=== PATIENT | female | born 1950 | race Caucasian/White ===

== ENCOUNTER 2019-05-14 08:33 | Inpatient (IN) | payer OTHER, SELFPAY ==
[~2019-05-14] VITALS: Ht 162.6 cm; Wt 56.6 kg
[2019-05-14] MEDS ORDERED: ASPI81TA85 PO (08:52)
[2019-05-14] MEDS ORDERED: CLOPIDOGREL 75 MG TAB PO SCH (09:00)
[2019-05-14] MEDS ORDERED: ASPIRIN 81 MG CHEW TABLET PO SCH (09:00)
--- NOTE | 2019-05-14 09:36 | REP ---
CT brain: No new 05/14/2019. Indication: Altered mental status. Stroke. Comparison: None. Technique: Unenhanced axial CT images of the brain were obtained from skull base to vertex. Findings: There is no acute intracranial hemorrhage, acute cortical infarction, mass effect or hydrocephalous. Age-related volume loss is present. Patchy areas of cerebral hemisphere white matter hypoattenuation are noted most consistent with chronic small vessel disease. The visualized paranasal sinuses and mastoid air cells are clear. Impression: No acute intracranial process. Chronic age-related ischemic changes. Electronically Signed by Arthur Tovar DO 05/14/2019 09:28 A
[2019-05-14 09:38] LABS: BASO % 0.3 % (0.0-1.0); HEMATOCRIT 46.9 % (36.0-47.0); HEMOGLOBIN 15.2 g/dl (12.0-15.5); LYMPH # 0.8 10^3/uL (1.5-5.0); LYMPH % 6.8 % (24.0-44.0); MEAN CORPUSCULAR HEMOGLOBIN 29.7 pg (27.0-33.0); MEAN CORPUSCULAR HGB CONC 32.4 g/dl (32.0-36.5); MEAN CORPUSCULAR VOLUME 91.8 fl (80.0-96.0); MONO # 0.5 10^3/uL (0.0-0.8); MONO % 4.7 % (0.0-5.0); NEUTROPHILS # 9.8 10^3/uL (1.5-8.5); NEUTROPHILS % 87.8 % (36.0-66.0); PLATELET COUNT, AUTOMATED 311 10^3/uL (150-450); RED BLOOD COUNT 5.11 10^6/uL (4.00-5.40); WHITE BLOOD COUNT 11.1 10^3/uL (4.0-10.0)
--- NOTE | 2019-05-14 09:41 | REP ---
Clinical: Altered mental status . Comparison: None . Findings: The mediastinum and cardiac silhouette are stable and within normal limits for portable technique. The lung miller demonstrate chronic changes without acute consolidation, effusion, or pneumothorax. Skeletal structures are intact. Impression: No acute cardiopulmonary process appreciated. Electronically Signed by Tirso Serrano MD 05/14/2019 09:33 A
[2019-05-14 10:11] LABS: INR 1.03; PROTHROMBIN TIME 13.2 SECONDS (11.8-14.0)
[2019-05-14 10:19] LABS: ALBUMIN 4.2 GM/DL (3.2-5.2); ALT/SGPT 39 U/L (12-78); BILIRUBIN,DIRECT 0.2 MG/DL (0.0-0.2); BILIRUBIN,TOTAL 0.8 MG/DL (0.2-1.0); BLOOD UREA NITROGEN 12 MG/DL (7-18); CALCIUM LEVEL 9.6 MG/DL (8.8-10.2); CARBON DIOXIDE LEVEL 24 MEQ/L (21-32); CHLORIDE LEVEL 106 MEQ/L (98-107); CK-MB VALUE MASS 6.3 NG/ML (<3.6); CPK CREATINE PHOSPHOKINASE 284 U/L (26-192); CREATININE FOR GFR 0.67 MG/DL (0.55-1.30); GLOMERULAR FILTRATION RATE > 60.0 (>39); GLUCOSE, FASTING 140 MG/DL (70-100); MB/CK RELATIVE INDEX 2.22 (< OR =4); POTASSIUM SERUM 3.7 MEQ/L (3.5-5.1); SODIUM LEVEL 140 MEQ/L (136-145); THYROID STIMULATING HORMONE 0.914 uIU/ML (0.358-3.740); TOTAL PROTEIN 7.9 GM/DL (6.4-8.2); TROPONIN I 0.68 NG/ML (< 0.10)
[2019-05-14] MEDS ORDERED: LABETALOL HCL 200 MG in D5W 160 ML IV SCH ×5 (11:45→13:00)
[2019-05-14] MEDS ORDERED: LABETALOL HCL 100 MG/20 ML VIAL IV PRN (12:00)
--- NOTE | 2019-05-14 12:23 | REP ---
MRI brain: New 05/14/2019. Indication: Weakness. Stroke. Comparison: None. Technique: Multiplanar short and long TR sequences of the brain were obtained without IV Gadolinium. Findings: There is a focus of restricted diffusion within the right mast radiata and extends inferiorly into the posterior limb of the internal capsule and subcortical insular white matter. There is no associated mass effect or hemorrhage. No additional areas of restricted diffusion are present. Diffuse volume loss is present. There are multiple areas of elevated T2 prolongation scattered throughout the cerebral hemisphere white matter most consistent with chronic small vessel disease. The large intracranial flow voids are present. The midline structures, and craniocervical junction are unremarkable. Impression: Acute right mast radiata infarction without mass effect or significant hemorrhage. Sequelae of chronic microangiopathic ischemic disease and mild diffuse volume loss. Electronically Signed by Arthur Tovar DO 05/14/2019 12:15 P
--- NOTE | 2019-05-14 12:32 | REP ---
Intracranial MRA: 05/14/2019. Indication: Stroke. Comparison: None. Technique: 3-D [id number] imaging of the intracranial vessels was performed. Findings: There are no areas of high-grade stenosis or vessel occlusion. Intracranially. There is a four - 5 mm right PCoA region aneurysm which projects laterally and inferiorly. No additional intracranial aneurysms are detected. There is no intracranial AVM ear Impression: No intracranial high-grade stenosis or vessel occlusion. 4- 5 mm right PCoA aneurysm. Electronically Signed by Arthur Tovar DO 05/14/2019 12:23 P
--- NOTE | 2019-05-14 13:04 | REP ---
Clinical: Acute right mast radiata infarction. Technique: William scale and color Doppler evaluation using linear high frequency transducer Findings: Two-dimensional william scale and color images demonstrate minimal atheromatous plaquing with normal laminar flow and no appreciable narrowing. Color Doppler interrogation demonstrates normal arterial wave patterns and velocities with no significant spectral broadening. Normal flow direction is appreciated in the bilateral vertebral arteries. RIGHT (cm/s) LEFT (cm/s) ICA peak systolic velocity 50.2 51.6 ICA diastolic velocity 18.8 16.2 ECA peak systolic velocity 74.0 68.1 CCA peak systolic velocity 59.3 63.9 ICA/CCA ratio 0.85 0.81 Impression: No hemodynamically significant areas of narrowing or stenosis appreciated. Based on set standards narrowing falls within the less than 50% range. Electronically Signed by Tirso Serrano MD 05/14/2019 12:55 P
[2019-05-14 13:27] VITALS: BP 174/118
[2019-05-14] MEDS: ASPIRIN 81 MG CHEW TABLET PO SCH (14:48)
[2019-05-14] MEDS: ATORVASTATIN 20 MG TAB PO SCH (14:48)
[2019-05-14] MEDS: CLOPIDOGREL 75 MG TAB PO SCH (14:48)
[2019-05-14 15:42] LABS: HEMOGLOBIN A1c 5.6 %
[2019-05-14 15:57] LABS: CHOLESTEROL RISK RATIO 3.388 (<5); THYROID STIMULATING HORMONE 0.642 uIU/ML (0.358-3.740); TROPONIN I 2.15 NG/ML (< 0.10)
[2019-05-14 16:00] VITALS: BP 180/116
--- NOTE | 2019-05-14 17:02 | ECGEPIP ---
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 Electronically Signed on 05-14-2019 17:02:12 EDT by Oseas Joy
[2019-05-14] MEDS ORDERED: PILL CUTTER 1 EACH XX PRN (18:00)
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
[2019-05-14] MEDS: LABETALOL 100 MG TAB PO PRN (18:04)
[2019-05-14] MEDS: ENOXAPARIN 40 MG/0.4 ML SYRINGE (J1650) SC SCH (18:29)
[2019-05-14 20:00] VITALS: BP 170/100
[2019-05-14] MEDS ORDERED: ATORVASTATIN 20 MG TAB PO SCH (21:00)
--- NOTE | 2019-05-14 21:38 | ECGEPIP ---
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
[2019-05-14 23:22] LABS: CK-MB VALUE MASS 12.4 NG/ML (<3.6); MB/CK RELATIVE INDEX 2.86 (< OR =4)
[2019-05-14 23:28] LABS: MB/CK RELATIVE INDEX 2.9 (< OR =4); TROPONIN I 2.77 NG/ML (< 0.10)
[2019-05-15] VITALS (7 sets, daily range): BP systolic 140–176; BP diastolic 70–106
[2019-05-15 05:54] LABS: HEMATOCRIT 44.6 % (36.0-47.0); HEMOGLOBIN 14.8 g/dl (12.0-15.5); MEAN CORPUSCULAR HEMOGLOBIN 29.1 pg (27.0-33.0); MEAN CORPUSCULAR HGB CONC 33.2 g/dl (32.0-36.5); MEAN CORPUSCULAR VOLUME 87.8 fl (80.0-96.0); PLATELET COUNT, AUTOMATED 322 10^3/uL (150-450); RED BLOOD COUNT 5.08 10^6/uL (4.00-5.40); WHITE BLOOD COUNT 8.4 10^3/uL (4.0-10.0)
[2019-05-15 06:28] LABS: ALBUMIN 3.7 GM/DL (3.2-5.2); ALT/SGPT 36 U/L (12-78); BLOOD UREA NITROGEN 15 MG/DL (7-18); CALCIUM LEVEL 9.5 MG/DL (8.8-10.2); CARBON DIOXIDE LEVEL 28 MEQ/L (21-32); CHLORIDE LEVEL 101 MEQ/L (98-107); CREATININE FOR GFR 0.65 MG/DL (0.55-1.30); GLOMERULAR FILTRATION RATE > 60.0 (>39); GLUCOSE, FASTING 112 MG/DL (70-100); MAGNESIUM LEVEL 2.2 MG/DL (1.8-2.4); POTASSIUM SERUM 3.2 MEQ/L (3.5-5.1); SODIUM LEVEL 137 MEQ/L (136-145); TOTAL PROTEIN 7.4 GM/DL (6.4-8.2)
--- NOTE | 2019-05-15 06:39 | IPNPDOC ---
Text Note Date of Service The patient was seen on 05/15/19. NOTE Interim events: -Admitted with CVA with complete left sided paralysis with NIHSS11 -Rising troponins with stable non acute ischemic EKG with sinus tachycardia and no symptoms and euvolemia -Imaging confirmed right mast radiata infarction without severe vascular disease burden -neurology consulted -Cleared for regular diet Subjective: Feels the same, left sided still without motor strength, otherwise no complaints of chest pain, palpitations, dyspnea, pain Objective: Vitals: see below General Exam: Alert, No Acute Distress Eye Exam: PERRLA, Conjunctiva & lids normal, EOMI ENT Exam: Atraumatic, MMM Neck Exam: supple, no JVD Chest Exam: CTAB Heart Exam: RRR, soft systolic murmur loudest at RUSB Telemetry: No significant arrhythmia Abdomen Exam: Normoactive bowel sounds, soft, non tender Extremity Exam: WWP, no edema, non tender Skin Exam: Nl turgor and temperature, without rashes, breakdown or lesions Neuro Exam: STABLE FROM YESTERDAY: 5/5 strength in RUE and RLE. LLE 1/5 with 4/5 toe strength with wiggling and strength against resistance, however 1/5 unable to lift leg with mild movement of hip, LUE 0/5, sensation remains blunted in entire left side. Coherent clear speech with persistent left facial droop. Psych Exam: Positive: Mental status NL, Oriented x 3 Labs: pending. Prior labs reviewed. Imaging: reviewed. CT head without bleed, MRI confirmed right mast radiata infarction, while MRA and neck US did not reveal severe vascular disease burden or occlusions. Pending TTE. Assessment: 69 yo woman with a previously described history of hypertension not on any medications with no contact with health care providers for >40y, resident of [place], [place] who recently travelled to [place] a few days prior to presentation to visit her daughter and developed left sided numbness that evolved into flaccid paralysis overnight and presented to the ED after >16h with an initial NIHSS score of 11 per ED physician and confirmed acute right mast radiata infarction without mass effect or significant hemorrhage on MRI with course c/b NSTEMI in the setting of hypertensive emergency in the setting of CVA. 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 -[id number] -plavix 75 -neurology consulted -CT without acute a bleed -MRI confirmed an acute right mast radiata infarction without mass effect or significant hemorrhage -MRA did not show high grade intracranial stenosis or vessel occlusion, with noted 4-5mm aneurysm -neck US without significant narrowing -pending TTE with bubble study -PCU admission with permissive hypertension with goal [id number], maintaining BP. -has PRN PO labetalol for SBP>200 -Q4H vitals and neuro checks -s/p evaluation by speech--> regular diet -aspiration precautions -PT/OT eval and treat ordered -ARU evaluation requested -Telemetry -Hgb a1c pending -Lipid panel showing hyperlipidemia, and placed on lipitor as below -TSH wnl Hypertensive emergency: -Arrived in SBP 250s, now running 170s-180s without any intervention -Will maintain permissive hypertension at this time in the setting of an acute CVA with a target goal SBP of 180, which she is maintaining without any interventions. -has 50mg labetalol Q6H PRN order for sustained SBP >200. Type 2 NSTEMI in the setting of hypertensive emergency with CVA, no chest symptoms, EKG with sinus tachycardia likely and rising troponins -pending TTE -repeat EKG was stable and she remains asymptomatic -follow up AM troponin -continue telemetry -spoke with Dr. Joy who recommended adequate BP control with appropriate permissive hypertension and ordering the TTE with bubble study -lipid panel showing dyslipidemia now placed on lipitor -pending a1c -TSH wnl Hyperlipidemia: -continue lipitor DVT prophylaxis: lovenox Diet: regular Proxy: Diony Jaramillo at [phone] Code status: FULL CODE VS,Fishbone, I+O VS, Fishbone, I+O Laboratory Tests 05/14/19 09:19 05/15/19 05:06 Vital Signs Date Time Temp Pulse Resp B/P (MAP) Pulse Ox O2 Delivery O2 Flow Rate FiO2 05/15/19 00:00 97.5 84 18 176/106 (129) 94 Room Air I&O- Last 24 Hours up to 6 AM 05/15/19 06:00 Intake Total 460 ml Output Total 725 ml Balance -265 ml SHAYE ALDRIDGE MD May 15, 2019 06:39
[2019-05-15 07:26] LABS: TROPONIN I 3.37 NG/ML (< 0.10)
[2019-05-15] MEDS: ATORVASTATIN 20 MG TAB PO SCH (08:09)
[2019-05-15] MEDS: LABETALOL 100 MG TAB PO PRN ×2 (08:09→13:52)
[2019-05-15] MEDS: ASPIRIN 81 MG CHEW TABLET PO SCH (08:09)
[2019-05-15] MEDS: CLOPIDOGREL 75 MG TAB PO SCH (08:09)
[2019-05-15] MEDS: ENOXAPARIN 40 MG/0.4 ML SYRINGE (J1650) SC SCH (08:10)
--- NOTE | 2019-05-15 08:35 | CR ---
DATE OF CONSULTATION: 05/14/2019 REFERRING PHYSICIAN: Dr. Karely Mcneil REASON FOR CONSULTATION: Left-sided weakness. HISTORY OF PRESENT ILLNESS: The patient is a 69-year-old woman with history of untreated hypertension with no contact with health care providers for more than 40 years. Resident of [place], [place] who recently traveled to [place] less than a week ago by bus to visit her daughter who was brought to emergency department after falling out of bed. According to the patient that she lives alone. Her son visits her frequently. She came to visit her daughter in this area. Yesterday she felt her left arm and leg were numb and slightly uncoordinated but it improved. She walked around and had no problems. She went to sleep fine and woke up at 3:00 a.m. and fell while trying to get out of bed and was noted to have complete weakness of left arm and leg and facial weakness. She was brought to [facility] and her systolic blood pressure was around 215, without chest pain, shortness of breath. Her NIH stroke scale was 11. CT scan of head was unremarkable. MRI scan of brain showed acute right mast radiata ischemic stroke. She denies any headaches, neck or back pain. She denies fever, chills, cough, shortness of breath, chest pain, palpitations. PAST MEDICAL HISTORY: Hypertension. The patient has not seen a doctor for more than 40 years and does not take any medications. HOME MEDICATIONS: Aspirin 81 mg by mouth as needed. ALLERGIES: SEASONAL ALLERGIES, LACTOSE. REVIEW OF SYSTEMS: All systems were reviewed and found to be noncontributory except as mentioned in history of present illness. FAMILY HISTORY: Parents of natural causes. She has two children. Her in 2007. Sister of stroke. SOCIAL HISTORY: She denies smoking, alcohol or illicit drugs. PHYSICAL EXAMINATION: Temperature 98.7, pulse 104, respiratory 18, blood pressure 180/116. Heart: Regular rate and rhythm. Lungs: Clear to auscultation. Abdomen: Soft, nontender, nondistended. No pedal edema. No musculoskeletal abnormalities. No rash. No signs of meningeal irritation. The patient is awake, alert, oriented to place, person and time. Normal speech comprehension and repetition. Extraoral muscles are intact. Left-sided upper motor neuron type facial weakness. No nystagmus. Visual miller are full to confrontation. Recent and distant memory is intact. She has dense hemiplegia of left arm and leg with 0/5 strength on left side of body. Left plantar is upgoing. Right-sided strength 5/5. Right plantar is downgoing. Normal cerebellar testing on right side of body. Normal sensation throughout bilaterally. Gait could not be tested because of severe left hemiplegia. DIAGNOSTIC STUDIES: MRI brain is summarized above. MRA brain showed 4-5 mm posterior communicating artery aneurysm. Carotid ultrasound showed less than 50% bilateral carotid stenosis. ASSESSMENT: 1. Right mast radiata ischemic acute stroke causing left hemiplegia. 2. 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 3. Less than 50% bilateral carotid artery stenosis. 4. Medical noncompliance. PLAN: 1. Echocardiogram. 2. Physical and occupational therapy and rehabilitation. 3. Aspirin 81 mg by mouth daily and Plavix 75 mg by mouth daily. 4. Lipitor 20 mg by mouth daily. 5. Check fasting lipid profile. 6. Continue telemetry monitoring.
[2019-05-15] MEDS ORDERED: SLF 3 ML SYR IV PRN (11:30)
[2019-05-15] MEDS ORDERED: POTASSIUM CHLORIDE 10 MEQ SR TABLET PO ONE (12:15)
[2019-05-15] MEDS: SLF 3 ML SYR IV SCH ×2 (13:52→20:04)
[2019-05-16] VITALS (9 sets, daily range): BP systolic 138–220; BP diastolic 82–102; PULSE 85
[2019-05-16] MEDS: SLF 3 ML SYR IV SCH ×3 (04:14→21:30)
[2019-05-16 05:47] LABS: HEMATOCRIT 44.9 % (36.0-47.0); HEMOGLOBIN 14.9 g/dl (12.0-15.5); MEAN CORPUSCULAR HEMOGLOBIN 29.4 pg (27.0-33.0); MEAN CORPUSCULAR HGB CONC 33.2 g/dl (32.0-36.5); MEAN CORPUSCULAR VOLUME 88.7 fl (80.0-96.0); PLATELET COUNT, AUTOMATED 316 10^3/uL (150-450); RED BLOOD COUNT 5.06 10^6/uL (4.00-5.40); WHITE BLOOD COUNT 8.1 10^3/uL (4.0-10.0)
[2019-05-16 06:13] LABS: ALBUMIN 3.5 GM/DL (3.2-5.2); ALT/SGPT 35 U/L (12-78); BILIRUBIN,TOTAL 0.7 MG/DL (0.2-1.0); BLOOD UREA NITROGEN 17 MG/DL (7-18); CALCIUM LEVEL 9.5 MG/DL (8.8-10.2); CARBON DIOXIDE LEVEL 31 MEQ/L (21-32); CHLORIDE LEVEL 107 MEQ/L (98-107); CREATININE FOR GFR 0.79 MG/DL (0.55-1.30); GLOMERULAR FILTRATION RATE > 60.0 (>39); GLUCOSE, FASTING 106 MG/DL (70-100); POTASSIUM SERUM 3.4 MEQ/L (3.5-5.1); SODIUM LEVEL 142 MEQ/L (136-145); TOTAL PROTEIN 7.4 GM/DL (6.4-8.2)
[2019-05-16] MEDS ORDERED: POTASSIUM CHLORIDE 10 MEQ SR TABLET PO ONE (08:45)
[2019-05-16] MEDS: ASPIRIN 81 MG CHEW TABLET PO SCH (09:40)
[2019-05-16] MEDS: CLOPIDOGREL 75 MG TAB PO SCH (09:40)
[2019-05-16] MEDS: ATORVASTATIN 20 MG TAB PO SCH (09:40)
[2019-05-16] MEDS: ENOXAPARIN 40 MG/0.4 ML SYRINGE (J1650) SC SCH (09:41)
[2019-05-16] MEDS ORDERED: ISOVUE-370 76% 100ML VIAL (Q9967) As Ordered ONE (09:53)
--- NOTE | 2019-05-16 11:05 | REP ---
Clinical: Dyspnea. Technique: Axial contrast enhanced images from the thoracic inlet to the upper abdomen using pulmonary embolus protocol including multiplanar re-formations. 100 ml Isovue 370 intravenous contrast material administered without complication. Findings: Satisfactory enhancement of the pulmonary vasculature is achieved and no filling defects are identified to suggest pulmonary embolus. Mild cardiomegaly and suggestions for mild early pulmonary vascular congestion noted along with trace bibasilar fibroatelectatic changes. No effusion. No consolidation. Tracheobronchial tree is patent. No adenopathy. Surrounding musculoskeletal structures are intact. Upper abdomen demonstrates cholelithiasis and normal bilateral adrenal glands. Impression: 1. No evidence for pulmonary embolus. Relatively normal thoracic aorta without aneurysm or dissection. 2. Cardiomegaly with suggestions for mild vascular congestion as well as trace bibasilar fibroatelectatic changes. 3. No consolidation or effusion. Electronically Signed by Tirso Serrano MD 05/16/2019 10:56 A
--- NOTE | 2019-05-16 14:15 | ECHO ---
DATE OF PROCEDURE: 05/15/2019 REFERRING PHYSICIAN: Dr. Karely Mcneil PATIENT LOCATION: Room 3217. REASON FOR STUDY: Cerebrovascular accident (CVA). 2D MEASUREMENT: IVS - 1.3 cm LV - 3.6 cm LVPW - 1.3 cm LA - 3.4 cm Aorta - 3.5 cm IVC - 1.7 cm DOPPLER MEASUREMENTS: Peak velocity across the aortic valve - 1.2 meters per second. Peak velocity across the LVOT - 1.1 meters per second. Mitral E - 0.75, mitral A - 0.79 with a ratio of 0.9. Maximum tricuspid valve velocity - 2.1 meters per second. 2D COMMENTS: 1. Normal left ventricular size, wall thickness, and normal global left ventricular systolic function. The estimated left ventricular systolic ejection fraction is 60-65%. 2. Normal left atrium. Normal right atrium and right ventricle. 3. The atrial septum appeared to be normal without evidence of defect or shunt. 4. Normal aortic root. 5. Trace pericardial effusion noted, no evidence of cardiac tamponade. 6. Mildly calcified aortic valve with normal leaflet excursion. No mitral valve, tricuspid valve. The pulmonic valve and proximal pulmonary artery branches were not well visualized. 7. The inferior vena cava was normal in size, central venous pressure is most likely normal. DOPPLER: It detects mild mitral regurgitation and trace tricuspid regurgitation. The calculated pulmonary artery systolic pressure was normal. Abnormal relaxation pattern was noted across the mitral valve leaflets as well as the mitral valve annulus consistent with features of grade 1 left ventricular diastolic dysfunction. IMPRESSION: 1. Normal global left ventricular systolic function with mild concentric left ventricular hypertrophy. There are some features of grade 1 left ventricular diastolic dysfunction manifested by abnormal relaxation. 2. Aortic valve sclerosis without stenosis or aortic regurgitation. 3. Mild mitral regurgitation. 4. Trace tricuspid regurgitation with a normal calculated pulmonary artery systolic pressure. 5. Trace pericardial effusion. 6. Bubble study done twice with agitated normal saline was negative for intracardiac shunt. MTDD
--- NOTE | 2019-05-16 15:02 | IPNPDOC ---
Text Note Date of Service The patient was seen on 05/16/19. NOTE Interim events: -Troponins continue to rise with stable non acute ischemic EKG -Had TTE, read still pending -Did not tolerate PT yesterday, became acutely dyspneic and diaphoretic --> EKG stable, and as noted above, trops continued to rise Subjective: -This morning reporting chest pain at rest and feels dyspneic and asking to be pulled up in bed -Has new nasal congestion, reporting a history of allergies -Otherwise no N/V/D/fever/chills -Taking PO well Objective: Vitals: see below, General Exam: Alert, No Acute Distress Eye Exam: PERRLA, EOMI ENT Exam: Atraumatic, MMM Neck Exam: supple, no JVD Chest Exam: CTAB Heart Exam: RRR, soft systolic murmur loudest at RUSB Telemetry: No significant arrhythmia Abdomen Exam: Normoactive bowel sounds, soft, non tender Extremity Exam: WWP, no edema, non tender Skin Exam: Nl turgor and temperature, without rashes, breakdown or lesions Neuro Exam: 5/5 strength in RUE and RLE. LLE 1/5 with 4/5 toe strength with wiggling and strength against resistance, however 1/5 unable to lift leg with mild movement of hip and toes, LUE 0/5, sensation reportedly normal now on the left side. Coherent clear speech with improved left facial droop. Psych Exam: Positive: Mental status NL, Oriented x 3 Labs: pending. Prior labs reviewed. Imaging: reviewed. 05/14 - CT head without bleed, MRI confirmed right mast radiata infarction, while MRA and neck US did not reveal severe vascular disease burden or occlusions. 05/15 - Pending TTE read 05/16 - CTA with no PE with mild vascular congestion Assessment: 69 yo woman with a previously described history of hypertension not on any medications with no contact with health care providers for >40y, resident of [place], [place] who recently travelled to [place] a few days prior to presentation to visit her daughter and developed left sided numbness that evolved into flaccid paralysis overnight and presented to the ED after >16h with an initial NIHSS score of 11 per ED physician and confirmed acute right mast radiata infarction without mass effect or significant hemorrhage on MRI with course c/b NSTEMI in the setting of hypertensive emergency in the setting of CVA. 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 -[id number] -plavix 75 -neurology consulted -CT without acute a bleed -MRI confirmed an acute right mast radiata infarction without mass effect or significant hemorrhage -MRA did not show high grade intracranial stenosis or vessel occlusion, with noted 4-5mm aneurysm -neck US without significant narrowing -pending read of TTE with bubble study -PCU admission with permissive hypertension now slowly self normalizing BPs -Q4H vitals and neuro checks -s/p evaluation by speech--> regular diet -aspiration precautions -PT/OT eval and treat ordered -ARU evaluation requested -Telemetry -Hgb a1c without diabetes -Lipid panel showing hyperlipidemia, and placed on lipitor as below -TSH wnl -Updated her daughter, patient and daughter are ok with the idea of her staying her in [place] Hypertensive emergency: -Highest in the ED was in SBP 250s, now downtrending without any intervention -Will maintain permissive hypertension at this time in the setting of an acute CVA with a target goal SBP of 180, which she is maintaining without any interventions. Type 2 NSTEMI in the setting of hypertensive emergency with CVA, newly reporting chest pain this morning, with EKG with sinus rhythm and rising troponins -pending TTE read -repeat EKG was stable and chest pain resolved -continue telemetry -spoke with Dr. Joy on admission who recommended adequate BP control with appropriate permissive hypertension and ordering the TTE with bubble study -lipid panel showing dyslipidemia now placed on lipitor -normal a1c -TSH wnl Dyspnea on exertion: -s/p CTA with no PE with mild pulm congestion -follow up TTE -no hypoxemia and euvolemic on exam -Monitor volume status -Incentive spirometry Hyperlipidemia: -continue lipitor DVT prophylaxis: lovenox Diet: regular Proxy: Diony Jaramillo at [phone] Code status: FULL CODE VS,Fishbone, I+O VS, Fishbone, I+O Laboratory Tests 05/16/19 05:10 Vital Signs Date Time Temp Pulse Resp B/P (MAP) Pulse Ox O2 Delivery O2 Flow Rate FiO2 05/16/19 12:00 98.2 81 18 166/98 (120) 97 Room Air I&O- Last 24 Hours up to 6 AM 11/2/19 06:00 Intake Total 1615 ml Output Total 650 ml Balance 965 ml SHAYE ALDRIDGE MD May 16, 2019 13:59
[2019-05-16] MEDS: LABETALOL 100 MG TAB PO PRN ×2 (16:56→23:47)
[2019-05-17] VITALS (7 sets, daily range): BP systolic 122–168; BP diastolic 70–108
[2019-05-17] MEDS ORDERED: hydrOXYzine 10 MG TAB PO STA (00:26)
[2019-05-17 05:23] LABS: HEMATOCRIT 43.8 % (36.0-47.0); HEMOGLOBIN 13.8 g/dl (12.0-15.5); MEAN CORPUSCULAR HEMOGLOBIN 28.7 pg (27.0-33.0); MEAN CORPUSCULAR HGB CONC 31.5 g/dl (32.0-36.5); MEAN CORPUSCULAR VOLUME 91.1 fl (80.0-96.0); PLATELET COUNT, AUTOMATED 276 10^3/uL (150-450); RED BLOOD COUNT 4.81 10^6/uL (4.00-5.40); WHITE BLOOD COUNT 7.1 10^3/uL (4.0-10.0)
[2019-05-17 05:48] LABS: ALBUMIN 3.2 GM/DL (3.2-5.2); ALT/SGPT 37 U/L (12-78); BILIRUBIN,TOTAL 0.6 MG/DL (0.2-1.0); BLOOD UREA NITROGEN 19 MG/DL (7-18); CALCIUM LEVEL 9.6 MG/DL (8.8-10.2); CARBON DIOXIDE LEVEL 28 MEQ/L (21-32); CHLORIDE LEVEL 108 MEQ/L (98-107); CREATININE FOR GFR 0.67 MG/DL (0.55-1.30); GLOMERULAR FILTRATION RATE > 60.0 (>39); GLUCOSE, FASTING 112 MG/DL (70-100); POTASSIUM SERUM 3.7 MEQ/L (3.5-5.1); SODIUM LEVEL 143 MEQ/L (136-145)
[2019-05-17] MEDS: SLF 3 ML SYR IV SCH ×3 (06:02→22:15)
[2019-05-17] MEDS: ATORVASTATIN 20 MG TAB PO SCH (08:04)
[2019-05-17] MEDS: ASPIRIN 81 MG CHEW TABLET PO SCH (08:05)
[2019-05-17] MEDS: CLOPIDOGREL 75 MG TAB PO SCH (08:05)
[2019-05-17] MEDS: LABETALOL 100 MG TAB PO PRN (08:05)
[2019-05-17] MEDS: ENOXAPARIN 40 MG/0.4 ML SYRINGE (J1650) SC SCH (08:05)
--- NOTE | 2019-05-17 11:34 | REP ---
Clinical: Infarction. Comparison: 05/14/2019. Findings: Subacute infarction involving the right mast radiata is again appreciated. No hemorrhage or mass effect. Ventricles are symmetric. Underlying chronic microvascular ischemic changes and periventricular leukomalacia are again noted. No extra-axial fluid collection. Calvarium is intact. Sinuses are within normal limits. Impression: 1. Continued evidence for acute/subacute infarction involving the right mast radiata as previously diagnosed. 2. No acute intracranial hemorrhage. No mass effect. No obvious new acute process. Electronically Signed by Tirso Serrano MD 05/17/2019 11:26 A
[2019-05-18] VITALS (7 sets, daily range): BP systolic 138–178; BP diastolic 70–120
[2019-05-18 05:37] LABS: HEMATOCRIT 40.7 % (36.0-47.0); HEMOGLOBIN 13.3 g/dl (12.0-15.5); MEAN CORPUSCULAR HEMOGLOBIN 29.7 pg (27.0-33.0); MEAN CORPUSCULAR HGB CONC 32.7 g/dl (32.0-36.5); MEAN CORPUSCULAR VOLUME 90.8 fl (80.0-96.0); PLATELET COUNT, AUTOMATED 283 10^3/uL (150-450); RED BLOOD COUNT 4.48 10^6/uL (4.00-5.40); WHITE BLOOD COUNT 8.1 10^3/uL (4.0-10.0)
[2019-05-18 06:02] LABS: ALBUMIN 3.1 GM/DL (3.2-5.2); ALT/SGPT 58 U/L (12-78); BILIRUBIN,TOTAL 0.4 MG/DL (0.2-1.0); BLOOD UREA NITROGEN 23 MG/DL (7-18); CALCIUM LEVEL 9.1 MG/DL (8.8-10.2); CARBON DIOXIDE LEVEL 28 MEQ/L (21-32); CHLORIDE LEVEL 110 MEQ/L (98-107); CREATININE FOR GFR 0.57 MG/DL (0.55-1.30); GLOMERULAR FILTRATION RATE > 60.0 (>39); GLUCOSE, FASTING 110 MG/DL (70-100); POTASSIUM SERUM 3.6 MEQ/L (3.5-5.1); SODIUM LEVEL 143 MEQ/L (136-145); TOTAL PROTEIN 6.7 GM/DL (6.4-8.2)
[2019-05-18] MEDS: SLF 3 ML SYR IV SCH ×3 (06:17→21:07)
--- NOTE | 2019-05-18 06:51 | IPNPDOC ---
Text Note Date of Service The patient was seen on 05/17/19. NOTE Interim events: -Troponins finally downtrending with stable non acute ischemic EKG -Had grossly normal TTE with mild diastolic dysfunction and no evidence of PFO -Hypertensive overnight --> stable EKG. -This morning was hypertensive to DBP>100 so she received the PRN labetalol 50mg and shortly after had a briefly noted episode of bradycardia to mid 30s --> on n ursing evaluation, had a blank stare and moved paretic arm up with c/f seizure activity with immediate return to consciousness after and unchanged neuro examination Subjective: -No chest pain, shortness of breath, pain, dysuria, fever, chills, sweats -nasal congestion resolved without any intervention -Taking PO well -Otherwise tolerated PT today -feels very tired Objective: Vitals: see below, General Exam: Alert, No Acute Distress Eye Exam: PERRLA, EOMI ENT Exam: Atraumatic, MMM Neck Exam: supple, no JVD Chest Exam: CTAB Heart Exam: RRR Telemetry: No significant arrhythmia Abdomen Exam: Normoactive bowel sounds, soft, non tender Extremity Exam: WWP, no edema, non tender Skin Exam: Nl turgor and temperature, without rashes, breakdown or lesions Neuro Exam: 5/5 strength in RUE and RLE. LLE 1/5, LUE 0/5, sensation reportedly normal. Coherent clear speech with left facial droop. Psych Exam: Positive: Mental status NL, Oriented x 3 Labs: pending. Prior labs reviewed. Imaging: reviewed. 05/14 - CT head without bleed, MRI confirmed right mast radiata infarction, while MRA and neck US did not reveal severe vascular disease burden or occlusions. 05/15 - Pending TTE read 05/16 - CTA with no PE with mild vascular congestion 05/17 - noncon head CT with continued evidence for acute/subacute infarction involving the right mast radiata as previously described with no acute intracranial hemorrhage. No mass effect. No obvious new acute process. Assessment: 69 yo woman with a previously noted history of hypertension not on any medications with no contact with health care providers for >40y, resident of [place], [place] who recently travelled to [place] a few days prior to presentation for left sided numbness that evolved into flaccid paralysis overnight and presented to the ED >16h after initial symptoms with an initial NIHSS score of 11 per ED and confirmed acute right mast radiata infarction without mass effect or significant hemorrhage on MRI with course c/b NSTEMI in the setting of hypertensive emergency in the setting of CVA. 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 -[id number] -plavix 75 -neurology consulted -CT without acute a bleed -MRI confirmed an acute right mast radiata infarction without mass effect or significant hemorrhage -MRA did not show high grade intracranial stenosis or vessel occlusion, with noted 4-5mm aneurysm -neck US without significant narrowing -pending read of TTE with bubble study -PCU admission with permissive hypertension now slowly self normalizing BPs -Q4H vitals and neuro checks -s/p evaluation by speech--> regular diet -aspiration precautions -PT/OT eval and treat ordered -ARU evaluation requested -Telemetry -Hgb a1c without diabetes -Lipid panel showing hyperlipidemia, and placed on lipitor as below -TSH wnl -Updated her daughter, patient and daughter are ok with the idea of her staying her in [place] Hypertensive emergency: -Highest in the ED was in SBP 250s, now downtrending without any intervention -Will maintain permissive hypertension at this time in the setting of an acute CVA with a target goal SBP of 180, which she is maintaining without any interventions. -s/p follow up CT head this morning Type 2 NSTEMI in the setting of hypertensive emergency with CVA, newly reporting chest pain this morning, with EKG with sinus rhythm and rising troponins -pending TTE read -repeat EKG was stable and chest pain resolved -continue telemetry -spoke with Dr. Joy on admission who recommended adequate BP control with appropriate permissive hypertension and ordering the TTE with bubble study -lipid panel showing dyslipidemia now placed on lipitor -normal a1c -TSH wnl Dyspnea on exertion: -s/p CTA with no PE with mild pulm congestion -follow up TTE -no hypoxemia and euvolemic on exam -Monitor volume status -Incentive spirometry Hyperlipidemia: -continue lipitor DVT prophylaxis: lovenox Diet: regular Proxy: Diony Jaramillo at [phone] Code status: FULL CODE VS,Fishbone, I+O VS, Fishbone, I+O Laboratory Tests 05/17/19 04:49 Vital Signs Date Time Temp Pulse Resp B/P (MAP) Pulse Ox O2 Delivery O2 Flow Rate FiO2 05/17/19 11:28 71 150/79 (102) 78 140/82 (101) 88 134/87 (103) 05/17/19 08:00 98.6 16 94 Room Air I&O- Last 24 Hours up to 6 AM 05/17/19 06:00 Intake Total 570 ml Output Total 650 ml Balance -80 ml SHAYE ALDRIDGE MD May 17, 2019 13:46
--- NOTE | 2019-05-18 07:00 | IPNPDOC ---
Text Note Date of Service The patient was seen on 05/18/19. NOTE Interim events: -Some hypertension yesterday requiring PRN labetalol, c/b subsequent brief bradycardic episode with blank stare episode that triggered a follow head CT that was stable with no hemorrhagic conversion or new acute strokes Subjective: -No chest pain, shortness of breath, pain, dysuria, fever, chills, sweats -Taking PO well Objective: Vitals: see below, General Exam: Alert, No Acute Distress Eye Exam: PERRLA, EOMI ENT Exam: Atraumatic, MMM Neck Exam: supple, no JVD Chest Exam: CTAB Heart Exam: RRR Telemetry: No significant arrhythmia Abdomen Exam: Normoactive bowel sounds, soft, non tender Extremity Exam: WWP, no edema, non tender Skin Exam: Nl turgor and temperature, without rashes, breakdown or lesions Neuro Exam: 5/5 strength in RUE and RLE. LLE 1/5, LUE 0/5, sensation reportedly normal. Coherent clear speech with left facial droop. Psych Exam: Positive: Mental status NL, Oriented x 3 Labs: pending. Prior labs reviewed. Mild hypo K Imaging: reviewed. 05/14 - CT head without bleed, MRI confirmed right mast radiata infarction, while MRA and neck US did not reveal severe vascular disease burden or occlusions. 05/15 - Pending TTE read 05/16 - CTA with no PE with mild vascular congestion 05/17 - noncon head CT with continued evidence for acute/subacute infarction involving the right mast radiata as previously described with no acute intracranial hemorrhage. No mass effect. No obvious new acute process. Assessment: 69 yo woman with a previously noted history of hypertension not on any medications with no contact with health care providers for >40y, resident of [place], [place] who recently travelled to [place] a few days prior to presentation f or left sided numbness that evolved into flaccid paralysis overnight and presented to the ED >16h after initial symptoms with an initial NIHSS score of 11 per ED and confirmed acute right mast radiata infarction without mass effect or significant hemorrhage on MRI with course c/b NSTEMI in the setting of hypertensive emergency in the setting of CVA awaiting PT and ARU evaluation recommendations. 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 -[id number] -plavix 75 -neurology consulted -follow up CT head without acute a bleed or new changes -MRI confirmed an acute right mast radiata infarction without mass effect or significant hemorrhage -MRA did not show high grade intracranial stenosis or vessel occlusion, with noted 4-5mm aneurysm -neck US without significant narrowing -TTE was grossly normal with no evidence of PFO, with mild grade 1 diastolic dysfunction -Permissive hypertension now self normalizing BPs, with PRN labetalol for SBP >180 and DBP >100 -Q4H vitals and neuro checks -s/p evaluation by speech--> regular diet -aspiration precautions -PT/OT eval ongoing -ARU evaluation requested --> will follow up today -Telemetry -Hgb a1c without diabetes -Lipid panel showing hyperlipidemia, and placed on lipitor as below -TSH wnl -Updated her daughter on Saturday, patient and daughter are ok with the idea of her staying her in [place] Hypertensive emergency: -Highest in the ED was in SBP 250s, now downtrending without any intervention -Will maintain permissive hypertension at this time in the setting of an acute CVA, which she is maintaining without any interventions now slowly returning to lower BPs, with PRN labetalol for SBP>180 and/or DBP>100 Type 2 NSTEMI in the setting of hypertensive emergency with CVA, with non ischemic serial EKGs with sinus rhythm and now downtrended troponins -TTE read did not show any WMA, had normal EF and no PFO or clots -serial EKGs were stable and chest pain resolved -continue telemetry -spoke with Dr. Joy on admission who recommended adequate BP control with appropriate permissive hypertension and TTE with bubble study was grossly normal with grade 1 diastolic dysfunction -lipid panel showing dyslipidemia now placed on lipitor -normal a1c -TSH wnl Dyspnea on exertion: -s/p CTA with no PE with mild pulm congestion -TTE wnl with no evidence of WMA, EF normal, RVSP normal -no hypoxemia and euvolemic on exam -Monitor volume status -Incentive spirometry Hyperlipidemia: -continue lipitor DVT prophylaxis: lovenox Diet: regular Proxy: Diony Jaramillo at [phone] Code status: FULL CODE Dispo: Pending PT and ARU evaluation recommendations VS,Fishbone, I+O VS, Fishbone, I+O Laboratory Tests 05/18/19 04:56 Vital Signs Date Time Temp Pulse Resp B/P (MAP) Pulse Ox O2 Delivery O2 Flow Rate FiO2 05/18/19 04:00 98.4 89 18 164/78 (106) 98 Room Air I&O- Last 24 Hours up to 6 AM 05/18/19 06:00 Intake Total 360 ml Output Total 975 ml Balance -615 ml SHAYE ALDRIDGE MD May 18, 2019 07:00
[2019-05-18] MEDS: ASPIRIN 81 MG CHEW TABLET PO SCH (09:05)
[2019-05-18] MEDS: ATORVASTATIN 20 MG TAB PO SCH (09:05)
[2019-05-18] MEDS: ENOXAPARIN 40 MG/0.4 ML SYRINGE (J1650) SC SCH (09:05)
[2019-05-18] MEDS: CLOPIDOGREL 75 MG TAB PO SCH (09:05)
[2019-05-18] MEDS: LABETALOL 100 MG TAB PO PRN (12:22)
--- NOTE | 2019-05-18 21:10 | ECGEPIP ---
[facility] Test Date: 2019-05-14 Pat Name: AMADA SON Department: Room: [place] [address] Gender: Female National Investigative Producer: CARLOS BRUCEB: 1950 Requested By: SOFÍA LADD Order Number: [id number] Reading MD: Maldonado Larkin Measurements Intervals [place] Rate: 87 P: 31 ID: 140 QRS: -36 QRSD: 73 T: -5 QT: 360 QTc: 434 Interpretive Statements Normal sinus rhythm Left atrial enlargement Inferior wall [place], age indeterminate Nonspecific ST-T wave abnormalities Consider LVH No significant change when compared to prior tracing of 05/14/2019 Electronically Signed on 05-18-2019 21:10:34 EST by Maldonado Larkin
--- NOTE | 2019-05-18 21:24 | ECGEPIP ---
[facility] Test Date: 2019-05-15 Pat Name: AMADA SON Department: Room: [place] [address] Gender: Female Studio Operator: BRAEDEN : 1950 Requested By: SHAYE Hauser Order Number: [id number] Reading MD: Maldonado Larkin Measurements Intervals [place] Rate: 85 P: 17 MS: 136 QRS: -36 QRSD: 84 T: 26 QT: 406 QTc: 485 Interpretive Statements Normal sinus rhythm Left atrial enlargement Inferior wall [place], age indeterminate Nonspecific ST-T wave abnormalities No significant change when compared to prior tracing of 05/14/2019 Electronically Signed on 05-18-2019 21:24:25 EST by Maldonado Larkin
--- NOTE | 2019-05-18 21:34 | ECGEPIP ---
[facility] Test Date: 2019-05-16 Pat Name: AMADA SON Department: Room: C7759-86 Gender: Female Drafter Directional Survey: BRAEDEN : 1950 Requested By: SHAYE Hauser Order Number: [id number] Reading MD: Maldonado Larkin Measurements Intervals [place] Rate: 80 P: 22 [place]: 132 QRS: -26 QRSD: 71 T: 24 QT: 387 QTc: 449 Interpretive Statements Normal sinus rhythm Left atrial enlargement Inferior wall [place], age indeterminate Nonspecific ST-T wave abnormalities No significant change when compared to prior tracing of 05/15/2019 Electronically Signed on 05-18-2019 21:34:32 EST by Maldonado Larkin
--- NOTE | 2019-05-18 21:38 | ECGEPIP ---
[facility] Test Date: 2019-05-16 Pat Name: AMADA SON Department: Room: [place] [address] Gender: Female Parking Meter Attendant: : 1950 Requested By: SOFÍA LADD Order Number: [id number] Reading MD: Maldonado Larkin Measurements Intervals [place] Rate: 85 P: 35 [place]: 156 QRS: -35 QRSD: 105 T: 24 QT: 379 QTc: 452 Interpretive Statements Normal sinus rhythm Inferior wall [place], age indeterminate Nonspecific ST-T wave abnormalities No significant change when compared to prior tracing of 05/16/2019 Electronically Signed on 05-18-2019 21:38:11 EST by Maldonado Larkin
--- NOTE | 2019-05-18 21:41 | ECGEPIP ---
[facility] Test Date: 2019-05-17 Pat Name: AMADA SON Department: Room: [place] [address] Gender: Female Sr Vice President: : 1950 Requested By: SHAYE Hauser Order Number: [id number] Reading MD: Maldonado Larkin Measurements Intervals [place] Rate: 67 P: 53 [place]: 165 QRS: -29 QRSD: 84 T: 12 QT: 419 QTc: 443 Interpretive Statements Normal sinus rhythm Inferior wall [place], age indeterminate Nonspecific ST-T wave abnormalities No significant change when compared to prior tracing of 05/16/2019 Electronically Signed on 05-18-2019 21:41:29 EST by Maldonado Larkin
--- NOTE | 2019-05-18 22:27 | EEG ---
DATE OF PROCEDURE: 05/18/2019 REFERRING PHYSICIAN: Dr. Karely Mcneil DIAGNOSIS: Syncope. EEG NUMBER: [id number] HISTORY: The patient is a 69-year-old woman who was admitted at [facility] due to stroke and left hemiplegia. This EEG was done to rule out epileptic potential. She had a passing out spell with bradycardia yesterday. She is currently taking aspirin, Plavix, Lipitor, etc. TECHNICAL DESCRIPTION: This digital EEG was recorded by 21 scalp, ear and two EKG electrodes and was reviewed in bipolar and referential montages following reformatting in 10-20 international electrode placement system. INTERPRETATION: The patient was noted to be in awake and drowsy states during this EEG. Resting awake background rhythm consisted of well-formed posterior dominant rhythm with anterior/posterior gradient comprising of 11 Hz alpha activity measuring 15-80 microvolts in amplitude, which was symmetric and reactive to eye opening. Attenuation of posterior dominant rhythm was seen during transition into drowsiness. Stage I and II sleep were reviewed and were symmetric bilaterally. Hyperventilation could not be performed. Photic stimulation remained unremarkable. EKG revealed normal sinus rhythm. No focal, lateralizing or epileptiform abnormalities were seen. No relevant clinical activity was noted. CONCLUSION: This EEG in awake, drowsy states, stage I and II sleep is within normal limits.
[2019-05-19] VITALS (7 sets, daily range): BP systolic 144–172; BP diastolic 87–98; PULSE 73
[2019-05-19 05:41] LABS: HEMATOCRIT 39.4 % (36.0-47.0); HEMOGLOBIN 12.9 g/dl (12.0-15.5); MEAN CORPUSCULAR HEMOGLOBIN 29.5 pg (27.0-33.0); MEAN CORPUSCULAR HGB CONC 32.7 g/dl (32.0-36.5); MEAN CORPUSCULAR VOLUME 90.2 fl (80.0-96.0); PLATELET COUNT, AUTOMATED 284 10^3/uL (150-450); RED BLOOD COUNT 4.37 10^6/uL (4.00-5.40); WHITE BLOOD COUNT 8.1 10^3/uL (4.0-10.0)
[2019-05-19] MEDS: SLF 3 ML SYR IV SCH ×3 (05:44→20:48)
[2019-05-19] MEDS: LABETALOL 100 MG TAB PO SCH ×3 (06:00→18:05)
[2019-05-19 06:21] LABS: ALBUMIN 3.1 GM/DL (3.2-5.2); ALT/SGPT 57 U/L (12-78); BILIRUBIN,TOTAL 0.7 MG/DL (0.2-1.0); BLOOD UREA NITROGEN 20 MG/DL (7-18); CALCIUM LEVEL 8.9 MG/DL (8.8-10.2); CARBON DIOXIDE LEVEL 28 MEQ/L (21-32); CHLORIDE LEVEL 110 MEQ/L (98-107); CREATININE FOR GFR 0.58 MG/DL (0.55-1.30); GLOMERULAR FILTRATION RATE > 60.0 (>39); GLUCOSE, FASTING 107 MG/DL (70-100); POTASSIUM SERUM 3.4 MEQ/L (3.5-5.1); SODIUM LEVEL 144 MEQ/L (136-145); TOTAL PROTEIN 6.8 GM/DL (6.4-8.2)
[2019-05-19] MEDS: ENOXAPARIN 40 MG/0.4 ML SYRINGE (J1650) SC SCH (09:56)
[2019-05-19] MEDS: CLOPIDOGREL 75 MG TAB PO SCH (09:56)
[2019-05-19] MEDS: ATORVASTATIN 20 MG TAB PO SCH (09:56)
[2019-05-19] MEDS: amLODIPine 5 MG TAB PO SCH ×2 (09:56→20:48)
[2019-05-19] MEDS: ASPIRIN 81 MG CHEW TABLET PO SCH (09:56)
[2019-05-19] MEDS ORDERED: POTASSIUM CHLORIDE 10 MEQ SR TABLET PO ONE (10:00)
--- NOTE | 2019-05-19 11:53 | IPNPDOC ---
Text Note Date of Service The patient was seen on 05/19/19. NOTE Subjective: a new maculopapular erythematous rash on the chest wall at the site of the monitor stickers and on the Left paretic side arm , back and buttocks. Complains fo of paraesthesia ont he left leg. No chest pain, shortness of breath, pain, dysuria, fever, chills, sweats Taking PO well Objective: Vitals: see below, General Exam: Alert, No Acute Distress Eye Exam: PERRLA, EOMI ENT Exam: Atraumatic, MMM Neck Exam: supple, no JVD Chest Exam: CTAB Heart Exam: RRR, no rub , murmur or gallop Telemetry: No significant arrhythmia Abdomen Exam: Normoactive bowel sounds, soft, non tender Extremity Exam: WWP, no edema, non tender Skin Exam: Nl turgor and temperature, without rashes, breakdown or lesions Neuro Exam: 5/5 strength in RUE and RLE. LLE 1/5, LUE 0/5 Coherent clear speech with left facial droop. Psych Exam: Positive: Mental status NL, Oriented x 3 Labs: pending. Prior labs reviewed. Mild hypo K Imaging: reviewed. 05/14 - CT head without bleed, MRI confirmed right mast radiata infarction, while MRA and neck US did not reveal severe vascular disease burden or occlusions. 05/15 - Pending TTE read 05/16 - CTA with no PE with mild vascular congestion 05/17 - noncon head CT with continued evidence for acute/subacute infarction involving the right mast radiata as previously described with no acute intracranial hemorrhage. No mass effect. No obvious new acute process. Assessment: 69 yo woman with a previously noted history of hypertension not on any medications with no contact with health care providers for >40y, resident of [place], [place] who recently travelled to [place] a few days prior to presentation for left sided numbness that evolved into flaccid paralysis overnight and presented to the ED >16h after initial symptoms with an initial NIHSS score of 11 per ED and confirmed acute right mast radiata infarction without mass effect or significant hemorrhage on MRI with course c/b NSTEMI in the setting of hypertensive emergency in the setting of CVA awaiting PT and ARU evaluation recommendations. 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 s/p evaluation by speech--> regular diet aspiration precautions PT/OT eval ongoing ARU evaluation Hgb a1c without diabetes Lipid panel showing hyperlipidemia, and placed on lipitor as below EEG no abnormality Rash probably contact dermatitis patient does not have any complaints will keep area dry and frequent position change Hypertensive emergency: resolved due to acute stroke patient now hypertensive will start on amlodipine for Bp optimization. Labetelol prn. Type 2 NSTEMI in the setting of hypertensive emergency with CVA, with non ischemic serial EKGs with sinus rhythm and now downtrended troponins TTE read did not show any WMA, had normal EF and no PFO or clots serial EKGs were stable and chest pain resolved discussed with Dr. Joy on admission who recommended adequate BP control with appropriate permissive hypertension and TTE with bubble study was grossly normal with grade 1 diastolic dysfunction lipid panel showing dyslipidemia now placed on lipitor Dyspnea on exertion: s/p CTA with no PE with mild pulm congestion TTE wnl with no evidence of WMA, EF normal, RVSP normal no hypoxemia and euvolemic on exam Monitor volume status Incentive spirometry Hyperlipidemia: continue lipitor DVT prophylaxis: lovenox Diet: regular Proxy: Diony Jaramillo at [phone] Code status: FULL CODE Dispo: Pending PT and ARU evaluation recommendations VS,Fishbone, I+O VS, Fishbone, I+O Laboratory Tests 05/19/19 05:24 Vital Signs Date Time Temp Pulse Resp B/P (MAP) Pulse Ox O2 Delivery O2 Flow Rate FiO2 05/19/19 10:46 98.6 76 22 172/95 (120) 96 Room Air I&O- Last 24 Hours up to 6 AM 05/19/19 06:00 Intake Total 1360 ml Output Total 875 ml Balance 485 ml SALENA HOPKINS MD May 19, 2019 11:53
[2019-05-19] MEDS ORDERED: ONDANSETRON 4MG/2ML VIAL (J2405) IV PRN (16:15)
--- NOTE | 2019-05-19 22:08 | ECGEPIP ---
[facility] Test Date: 2019-05-19 Pat Name: AMADA SON Department: Room: Q0478-47 Gender: Female [employer] Associate: ROSENDO : 1950 Requested By: KALEY LAMAR Order Number: [id number] Reading MD: Maldonado Larkin Measurements Intervals [place] Rate: 76 P: 48 ME: 136 QRS: -32 QRSD: 86 T: 19 QT: 404 QTc: 455 Interpretive Statements Normal sinus rhythm Left axis deviation Inferior wall CO, age indeterminate Nonspecific T wave abnormality No significant change when compared to prior tracing of 05/17/2019 Electronically Signed on 05-19-2019 22:08:04 EST by Maldonado Larkin
[2019-05-20] VITALS (8 sets, daily range): BP systolic 115–169; BP diastolic 77–104
[2019-05-20] MEDS: LABETALOL 100 MG TAB PO SCH ×4 (06:00→18:00)
[2019-05-20] MEDS: SLF 3 ML SYR IV SCH ×3 (06:18→21:43)
[2019-05-20] MEDS: ENOXAPARIN 40 MG/0.4 ML SYRINGE (J1650) SC SCH (09:06)
[2019-05-20] MEDS: CLOPIDOGREL 75 MG TAB PO SCH (09:07)
[2019-05-20] MEDS: ASPIRIN 81 MG CHEW TABLET PO SCH (09:07)
[2019-05-20] MEDS: amLODIPine 5 MG TAB PO SCH ×2 (09:07→21:42)
[2019-05-20] MEDS: ATORVASTATIN 20 MG TAB PO SCH (09:07)
[2019-05-20] MEDS ORDERED: diphenhydrAMINE 25 MG CAP PO PRN (10:15)
--- NOTE | 2019-05-20 11:11 | IPNPDOC ---
Text Note Date of Service The patient was seen on 05/20/19. NOTE Subjective: a new maculopapular erythematous rash on the chest wall at the site of the monitor stickers and on the Left paretic side arm , back and buttocks. and left infra axilary region. pateint now complains of itching in the rash area around the left axilla Complains of paraesthesia on the left leg. No chest pain, shortness of breath, pain, dysuria, fever, chills, sweats Taking PO well Objective: Vitals: see below, General Exam: Alert, No Acute Distress Eye Exam: PERRLA, EOMI ENT Exam: Atraumatic, MMM Neck Exam: supple, no JVD Chest Exam: CTAB Heart Exam: RRR, no rub , murmur or gallop Telemetry: No significant arrhythmia Abdomen Exam: Normoactive bowel sounds, soft, non tender Extremity Exam: WWP, no edema, non tender Skin Exam: Nl turgor and temperature, without rashes, breakdown or lesions Neuro Exam: 5/5 strength in RUE and RLE. LLE 1/5, LUE 0/5 Coherent clear speech with left facial droop. Psych Exam: Positive: Mental status NL, Oriented x 3 Labs: pending. Prior labs reviewed. Mild hypo K Imaging: reviewed. 05/14 - CT head without bleed, MRI confirmed right mast radiata infarction, while MRA and neck US did not reveal severe vascular disease burden or occlusions. 05/15 - Pending TTE read 05/16 - CTA with no PE with mild vascular congestion 05/17 - noncon head CT with continued evidence for acute/subacute infarction involving the right mast radiata as previously described with no acute intracranial hemorrhage. No mass effect. No obvious new acute process. Assessment: 69 yo woman with a previously noted history of hypertension not on any medications with no contact with health care providers for >40y, resident of [place], [place] who recently travelled to [place] a few days prior to presentation for left sided numbness that evolved into flaccid paralysis overnight and presented to the ED >16h after initial symptoms with an initial NIHSS score of 11 per ED and confirmed acute right mast radiata infarction without mass effect or significant hemorrhage on MRI with course c/b NSTEMI in the setting of hypertensive emergency in the setting of CVA awaiting PT and ARU evaluation recommendations. 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 Rash probably contact dermatitis vs drug rash will give triamcinolone and benadryl prn. will keep area dry and frequent position change Hypertensive emergency: resolved due to acute stroke patient now hypertensive will start on amlodipine for Bp optimization. Labetelol prn. Type 2 NSTEMI in the setting of hypertensive emergency with CVA, with non ischemic serial EKGs with sinus rhythm and now downtrended troponins TTE read did not show any WMA, had normal EF and no PFO or clots serial EKGs were stable and chest pain resolved discussed with Dr. Joy on admission TTE with bubble study was grossly normal with grade 1 diastolic dysfunction lipid panel showing dyslipidemia now placed on lipitor Dyspnea on exertion: s/p CTA with no PE with mild pulm congestion TTE wnl with no evidence of WMA, EF normal, RVSP normal no hypoxemia and euvolemic on exam Monitor volume status Incentive spirometry Hyperlipidemia: continue lipitor DVT prophylaxis: lovenox Diet: regular Proxy: Diony Jaramillo at [phone] Code status: FULL CODE Dispo: Pending PT and ARU evaluation recommendations VS,Fishbone, I+O VS, Fishbone, I+O Vital Signs Date Time Temp Pulse Resp B/P (MAP) Pulse Ox O2 Delivery O2 Flow Rate FiO2 05/20/19 09:07 77 155/82 05/20/19 08:00 98.1 18 95 Room Air I&O- Last 24 Hours up to 6 AM 05/20/19 06:00 Intake Total 900 ml Output Total 750 ml Balance 150 ml SALENA HOPKINS MD May 20, 2019 11:11
[2019-05-20] MEDS: TRIAMCINOLONE ACET 0.1% OINTMENT 15 GM TOP SCH ×2 (11:26→21:42)
[2019-05-21] VITALS (7 sets, daily range): BP systolic 130–154; BP diastolic 79–98
[2019-05-21] MEDS: LABETALOL 100 MG TAB PO SCH ×4 (05:43→18:05)
[2019-05-21] MEDS: SLF 3 ML SYR IV SCH ×3 (05:59→21:50)
[2019-05-21] MEDS: CLOPIDOGREL 75 MG TAB PO SCH (09:59)
[2019-05-21] MEDS: ENOXAPARIN 40 MG/0.4 ML SYRINGE (J1650) SC SCH (09:59)
[2019-05-21] MEDS: ATORVASTATIN 20 MG TAB PO SCH (10:00)
[2019-05-21] MEDS: amLODIPine 5 MG TAB PO SCH ×2 (10:00→21:50)
[2019-05-21] MEDS: TRIAMCINOLONE ACET 0.1% OINTMENT 15 GM TOP SCH (10:00)
[2019-05-21] MEDS: ASPIRIN 81 MG CHEW TABLET PO SCH (10:00)
--- NOTE | 2019-05-21 15:43 | IPNPDOC ---
Text Note Date of Service The patient was seen on 05/21/19. NOTE Subjective: A new maculopapular erythematous rash on the chest wall at the site of the monitor stickers and on the Left paretic side arm , back and buttocks. and left infra axilary region. Denies any itching today. Complains of paraesthesia on the left leg. No chest pain, shortness of breath, pain, dysuria, fever, chills, sweats Taking PO well Objective: Vitals: see below, General Exam: Alert, No Acute Distress Eye Exam: PERRLA, EOMI ENT Exam: Atraumatic, MMM Neck Exam: supple, no JVD Chest Exam: CTAB Heart Exam: RRR, no rub , murmur or gallop Telemetry: No significant arrhythmia Abdomen Exam: Normoactive bowel sounds, soft, non tender Extremity Exam: WWP, no edema, non tender Skin Exam: Nl turgor and temperature, without rashes, breakdown or lesions Neuro Exam: 5/5 strength in RUE and RLE. LLE 1/5, LUE 0/5 Coherent clear speech with left facial droop. Psych Exam: Positive: Mental status NL, Oriented x 3 Labs: pending. Prior labs reviewed. Mild hypo K Imaging: reviewed. 05/14 - CT head without bleed, MRI confirmed right mast radiata infarction, while MRA and neck US did not reveal severe vascular disease burden or occlusions. 05/15 - Pending TTE read 05/16 - CTA with no PE with mild vascular congestion 05/17 - noncon head CT with continued evidence for acute/subacute infarction involving the right mast radiata as previously described with no acute intracranial hemorrhage. No mass effect. No obvious new acute process. Assessment: 69 yo woman with a previously noted history of hypertension not on any medi cations with no contact with health care providers for >40y, resident of [place], [place] who recently travelled to [place] a few days prior to presentation for left sided numbness that evolved into flaccid paralysis overnight and presented to the ED >16h after initial symptoms with an initial NIHSS score of 11 per ED and confirmed acute right mast radiata infarction without mass effect or significant hemorrhage on MRI with course c/b NSTEMI in the setting of hypertensive emergency in the setting of CVA awaiting PT and ARU evaluation recommendations. 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 Rash probably contact dermatitis vs drug rash will give triamcinolone and benadryl prn. will keep area dry and frequent position change nystatin powder. Hypertensive emergency: resolved due to acute stroke patient now hypertensive will start on amlodipine for Bp optimization. Labetelol prn. Type 2 NSTEMI in the setting of hypertensive emergency with CVA, with non ischemic serial EKGs with sinus rhythm and now downtrended troponins TTE read did not show any WMA, had normal EF and no PFO or clots serial EKGs were stable and chest pain resolved discussed with Dr. Joy on admission TTE with bubble study was grossly normal with grade 1 diastolic dysfunction lipid panel showing dyslipidemia now placed on lipitor Dyspnea on exertion: s/p CTA with no PE with mild pulm congestion TTE wnl with no evidence of WMA, EF normal, RVSP normal no hypoxemia and euvolemic on exam Monitor volume status Incentive spirometry Hyperlipidemia: continue lipitor DVT prophylaxis: lovenox Diet: regular Proxy: Diony Jaramillo at [phone] Code status: FULL CODE Dispo: Pending PT and ARU evaluation recommendations VS,Fishbone, I+O VS, Fishbone, I+O Vital Signs Date Time Temp Pulse Resp B/P (MAP) Pulse Ox O2 Delivery O2 Flow Rate FiO2 05/21/19 10:00 70 154/82 05/21/19 06:00 97.3 20 95 Room Air I&O- Last 24 Hours up to 6 AM 05/21/19 06:00 Intake Total 1570 ml Output Total 650 ml Balance 920 ml SALENA HOPKINS MD May 21, 2019 15:43
[2019-05-21] MEDS ORDERED: NYSTATIN 100,000 UNITS/GM TOPICAL PWD 15 GM TOP SCH (21:00)
[2019-05-21] MEDS ORDERED: NYSTATIN 100,000 UNITS/GM TOPICAL PWD 15 GM TOP PRN (22:15)
[2019-05-22] VITALS (7 sets, daily range): BP systolic 141–162; BP diastolic 90–97
[2019-05-22] MEDS: SLF 3 ML SYR IV SCH ×3 (05:40→21:10)
[2019-05-22] MEDS: TRIAMCINOLONE ACET 0.1% OINTMENT 15 GM TOP PRN (05:40)
[2019-05-22] MEDS: LABETALOL 100 MG TAB PO SCH ×4 (05:48→17:52)
[2019-05-22] MEDS: ASPIRIN 81 MG CHEW TABLET PO SCH (09:30)
[2019-05-22] MEDS: CLOPIDOGREL 75 MG TAB PO SCH (09:30)
[2019-05-22] MEDS: ATORVASTATIN 20 MG TAB PO SCH (09:30)
[2019-05-22] MEDS: ENOXAPARIN 40 MG/0.4 ML SYRINGE (J1650) SC SCH (09:30)
[2019-05-22] MEDS: amLODIPine 5 MG TAB PO SCH ×2 (09:33→21:10)
--- NOTE | 2019-05-22 14:27 | IPNPDOC ---
Text Note Date of Service The patient was seen on 05/22/19. NOTE Subjective: No new complaints today. The maculopapular erythematous rash on the chest wall at the site of the monitor stickers and on the Left paretic side arm , back and buttocks. and left infra axilary region. Denies any itching today. No chest pain, shortness of breath, pain, dysuria, fever, chills, sweats Taking PO well Objective: Vitals: see below, General Exam: Alert, No Acute Distress Eye Exam: PERRLA, EOMI ENT Exam: Atraumatic, MMM Neck Exam: supple, no JVD Chest Exam: CTAB Heart Exam: RRR, no rub , murmur or gallop Telemetry: No significant arrhythmia Abdomen Exam: Normoactive bowel sounds, soft, non tender Extremity Exam: WWP, no edema, non tender Skin Exam: Nl turgor and temperature, without rashes, breakdown or lesions Neuro Exam: 5/5 strength in RUE and RLE. LLE 1/5, LUE 0/5 Coherent clear speech with left facial droop. Psych Exam: Positive: Mental status NL, Oriented x 3 Labs: pending. Prior labs reviewed. Mild hypo K Imaging: reviewed. 05/14 - CT head without bleed, MRI confirmed right mast radiata infarction, while MRA and neck US did not reveal severe vascular disease burden or occlusions. 05/15 - Pending TTE read 05/16 - CTA with no PE with mild vascular congestion 05/17 - noncon head CT with continued evidence for acute/subacute infarction involving the right mast radiata as previously described with no acute intracranial hemorrhage. No mass effect. No obvious new acute process. Assessment: 69 yo woman with a previously noted history of hypertension not on any medications with no contact with health care providers for >40y, resident of [place], [place] who recently travelled to [place] a few days prior to presentation for left sided numbness that evolved into flaccid paralysis overnight and presented to the ED >16h after initial symptoms with an initial NIHSS score of 11 per ED and confirmed acute right mast radiata infarction without mass effect or significant hemorrhage on MRI with course c/b NSTEMI in the setting of hypertensive emergency in the setting of CVA awaiting PT and ARU evaluation recommendations. 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 Rash probably contact dermatitis vs drug rash will give triamcinolone and benadryl prn. will keep area dry and frequent position change nystatin powder. Hypertensive emergency: resolved due to acute stroke patient now hypertensive will start on amlodipine for Bp optimization. Labetelol prn. Type 2 NSTEMI in the setting of hypertensive emergency with CVA, with non ischemic serial EKGs with sinus rhythm and now downtrended troponins TTE read did not show any WMA, had normal EF and no PFO or clots serial EKGs were stable and chest pain resolved discussed with Dr. Joy on admission TTE with bubble study was grossly normal with grade 1 diastolic dysfunction lipid panel showing dyslipidemia now placed on lipitor Dyspnea on exertion: s/p CTA with no PE with mild pulm congestion TTE wnl with no evidence of WMA, EF normal, RVSP normal no hypoxemia and euvolemic on exam Monitor volume status Incentive spirometry Hyperlipidemia: continue lipitor DVT prophylaxis: lovenox Diet: regular Proxy: Diony Jaramillo at [phone] Code status: FULL CODE Dispo: Pending insurance set up VS,Fishbone, I+O VS, Fishbone, I+O Vital Signs Date Time Temp Pulse Resp B/P (MAP) Pulse Ox O2 Delivery O2 Flow Rate FiO2 05/22/19 12:00 97.9 85 16 147/93 (111) 96 Room Air I&O- Last 24 Hours up to 6 AM0 05/22/19 06:00 Intake Total 800 ml Output Total 725 ml Balance 75 ml SALENA HOPKINS MD May 22, 2019 14:27
[2019-05-23] MEDS: TRIAMCINOLONE ACET 0.1% OINTMENT 15 GM TOP PRN (04:32)
[2019-05-23 06:00] VITALS: BP 145/79
[2019-05-23] MEDS: LABETALOL 100 MG TAB PO SCH ×5 (06:00→23:22)
[2019-05-23] MEDS: SLF 3 ML SYR IV SCH ×3 (06:44→21:42)
[2019-05-23 06:49] LABS: BASO % 0.7 % (0.0-1.0); EOS # 0.3 10^3/uL (0.0-0.5); HEMATOCRIT 39.4 % (36.0-47.0); HEMOGLOBIN 12.7 g/dl (12.0-15.5); LYMPH # 1.4 10^3/uL (1.5-5.0); LYMPH % 23.5 % (24.0-44.0); MEAN CORPUSCULAR HEMOGLOBIN 29.2 pg (27.0-33.0); MEAN CORPUSCULAR HGB CONC 32.2 g/dl (32.0-36.5); MEAN CORPUSCULAR VOLUME 90.6 fl (80.0-96.0); MONO # 0.6 10^3/uL (0.0-0.8); MONO % 9.4 % (0.0-5.0); NEUTROPHILS # 3.7 10^3/uL (1.5-8.5); NEUTROPHILS % 61.1 % (36.0-66.0); PLATELET COUNT, AUTOMATED 318 10^3/uL (150-450); RED BLOOD COUNT 4.35 10^6/uL (4.00-5.40)
[2019-05-23 07:14] LABS: BLOOD UREA NITROGEN 23 MG/DL (7-18); CALCIUM LEVEL 9.6 MG/DL (8.8-10.2); CARBON DIOXIDE LEVEL 30 MEQ/L (21-32); CHLORIDE LEVEL 108 MEQ/L (98-107); CREATININE FOR GFR 0.61 MG/DL (0.55-1.30); GLOMERULAR FILTRATION RATE > 60.0 (>39); GLUCOSE, FASTING 98 MG/DL (70-100); POTASSIUM SERUM 3.2 MEQ/L (3.5-5.1); SODIUM LEVEL 142 MEQ/L (136-145)
[2019-05-23] MEDS: CLOPIDOGREL 75 MG TAB PO SCH (08:06)
[2019-05-23] MEDS: ATORVASTATIN 20 MG TAB PO SCH (08:06)
[2019-05-23] MEDS: ASPIRIN 81 MG CHEW TABLET PO SCH (08:06)
[2019-05-23] MEDS: amLODIPine 5 MG TAB PO SCH ×2 (08:07→21:42)
[2019-05-23] MEDS: ENOXAPARIN 40 MG/0.4 ML SYRINGE (J1650) SC SCH (08:07)
[2019-05-23 10:00] VITALS: BP 135/84
[2019-05-23 14:00] VITALS: BP 134/84
[2019-05-23 18:00] VITALS: BP 135/84
[2019-05-23 23:18] VITALS: BP 144/87
[2019-05-24 06:00] VITALS: BP 122/76
[2019-05-24] MEDS: LABETALOL 100 MG TAB PO SCH ×3 (06:00→16:58)
[2019-05-24] MEDS: SLF 3 ML SYR IV SCH ×3 (06:21→21:57)
[2019-05-24] MEDS: ASPIRIN 81 MG CHEW TABLET PO SCH (07:55)
[2019-05-24] MEDS: POTASSIUM CHLORIDE 10 MEQ SR TABLET PO SCH (07:55)
[2019-05-24] MEDS: ATORVASTATIN 20 MG TAB PO SCH (07:55)
[2019-05-24] MEDS: ENOXAPARIN 40 MG/0.4 ML SYRINGE (J1650) SC SCH (07:56)
[2019-05-24] MEDS: CLOPIDOGREL 75 MG TAB PO SCH (07:56)
[2019-05-24] MEDS: amLODIPine 5 MG TAB PO SCH ×2 (07:56→21:57)
[2019-05-24] MEDS: TRIAMCINOLONE ACET 0.1% OINTMENT 15 GM TOP PRN (17:19)
[2019-05-25] MEDS: LABETALOL 100 MG TAB PO SCH ×4 (05:50→18:00)
[2019-05-25] MEDS: SLF 3 ML SYR IV SCH ×3 (05:51→22:08)
[2019-05-25] MEDS: ENOXAPARIN 40 MG/0.4 ML SYRINGE (J1650) SC SCH (08:40)
[2019-05-25] MEDS: CLOPIDOGREL 75 MG TAB PO SCH (08:41)
[2019-05-25] MEDS: ASPIRIN 81 MG CHEW TABLET PO SCH (08:41)
[2019-05-25] MEDS: POTASSIUM CHLORIDE 10 MEQ SR TABLET PO SCH (08:41)
[2019-05-25] MEDS: ATORVASTATIN 20 MG TAB PO SCH (08:41)
[2019-05-25] MEDS: amLODIPine 5 MG TAB PO SCH ×2 (08:42→22:08)
[2019-05-26 06:00] VITALS: BP 111/66
[2019-05-26] MEDS: LABETALOL 100 MG TAB PO SCH ×4 (06:00→17:36)
[2019-05-26] MEDS: SLF 3 ML SYR IV SCH ×3 (06:07→21:38)
[2019-05-26] MEDS: ASPIRIN 81 MG CHEW TABLET PO SCH (09:19)
[2019-05-26] MEDS: CLOPIDOGREL 75 MG TAB PO SCH (09:19)
[2019-05-26] MEDS: ATORVASTATIN 20 MG TAB PO SCH (09:19)
[2019-05-26] MEDS: amLODIPine 5 MG TAB PO SCH ×2 (09:20→21:38)
[2019-05-26] MEDS: ENOXAPARIN 40 MG/0.4 ML SYRINGE (J1650) SC SCH (09:20)
[2019-05-26] MEDS: POTASSIUM CHLORIDE 10 MEQ SR TABLET PO SCH (09:20)
--- NOTE | 2019-05-26 17:59 | IPN ---
DATE: 05/26/2019 The patient continues to have left-sided hemiparesis, unable to lift the left upper arm and lower extremity, 0/5 motor function. The patient is working with physical therapy. We have been unable to get the rehabilitation approved, as still waiting for insurance. Afebrile overnight. No cough. No chills. The patient is not exhibiting any signs of aspiration. Denies any coughing when she eats. No dysphagia and no odynophagia. Temperature 97.6, pulse 64, respiratory rate 18, blood pressure 111/66, 94% on room air. GENERAL: The patient is awake, alert and oriented times three, answering questions appropriately. The speech is fluent. There is no facial asymmetry. No facial drooping. Pupils are round and reactive. Extraocular muscles are intact. Motor function is 1/5 in the left upper and lower extremity 0/5, 5/5 strength right upper and right lower extremity. The patient is right-handed by nature. She has appropriate speech and fluent. Unable to perform [id number] testing with the left due to 0/5 motor function. Lungs are clear to auscultation. No wheezes, rales, or rhonchi. HEART: S1, S2, sinus rhythm. Abdomen is soft, nontender, nondistended. Positive bowel sounds. No rebound or guarding. No hepatosplenomegaly. EXTREMITIES: No cyanosis, clubbing or pitting edema. The patient has no recent laboratory data. Previous laboratories on 05/23/2019 have been reviewed. All of which have been supplemented, particularly potassium of 3.2. ASSESSMENT AND PLAN: This is a 69-year-old female with a history of hypertension who presented with left-sided numbness and flaccid paralysis, was found to have hypertensive emergency and cerebrovascular accident (CVA) in the right mast radiata. IMPRESSION: 1. Cerebrovascular accident (CVA) with dense hemiparesis on the left. The patient has been evaluated by neurology. She did receive aspirin, Plavix, and statin. Continuation of rehabilitation as outpatient but awaiting approval by the patient's insurance. Continue physical therapy (PT) and occupational therapy (OT) as inpatient. 2. Hypertensive emergency. Currently with stable blood pressure of 111-149 systolic, maintained on amlodipine 5 twice a day and labetalol 50 every six hours with holding parameters. 3. Dyslipidemia, on Lipitor. 4. Rash, secondary to medication. Significantly improved, currently back to baseline, on Kenalog topically on the left axilla and left chest. 5. Low potassium has been supplemented. MTDD
[2019-05-26 23:13] VITALS: BP 145/79
[2019-05-27 00:24] VITALS: BP 143/80
[2019-05-27] MEDS: LABETALOL 100 MG TAB PO SCH ×4 (05:45→18:00)
[2019-05-27] MEDS: SLF 3 ML SYR IV SCH (05:50)
[2019-05-27 06:00] VITALS: BP 141/81
[2019-05-27] MEDS: ENOXAPARIN 40 MG/0.4 ML SYRINGE (J1650) SC SCH (09:49)
[2019-05-27] MEDS: ATORVASTATIN 20 MG TAB PO SCH (09:50)
[2019-05-27] MEDS: ASPIRIN 81 MG CHEW TABLET PO SCH (09:50)
[2019-05-27] MEDS: CLOPIDOGREL 75 MG TAB PO SCH (09:50)
[2019-05-27] MEDS: POTASSIUM CHLORIDE 10 MEQ SR TABLET PO SCH (09:50)
[2019-05-27] MEDS: amLODIPine 5 MG TAB PO SCH ×2 (09:52→21:48)
[2019-05-27 14:00] VITALS: BP 150/91
[2019-05-27] MEDS ORDERED: MIRALAX *UNIT DOSE* 17GM PACKET PO PRN (15:00)
[2019-05-27] MEDS ORDERED: MOM 30ML SUSPENSION UDC PO PRN (15:00)
[2019-05-27] MEDS: SENOKOT S TAB PO PRN (15:26)
[2019-05-27 21:46] VITALS: BP 155/92
[2019-05-27] MEDS: BISACODYL 5 MG TAB PO PRN (22:01)
[2019-05-28 06:00] VITALS: BP 156/86
[2019-05-28] MEDS: LABETALOL 100 MG TAB PO SCH ×4 (06:00→18:00)
[2019-05-28] MEDS: CLOPIDOGREL 75 MG TAB PO SCH (09:39)
[2019-05-28] MEDS: ATORVASTATIN 20 MG TAB PO SCH (09:39)
[2019-05-28] MEDS: POTASSIUM CHLORIDE 10 MEQ SR TABLET PO SCH (09:40)
[2019-05-28] MEDS: ENOXAPARIN 40 MG/0.4 ML SYRINGE (J1650) SC SCH (09:40)
[2019-05-28] MEDS: ASPIRIN 81 MG CHEW TABLET PO SCH (09:40)
[2019-05-28] MEDS: amLODIPine 5 MG TAB PO SCH ×2 (09:41→20:50)
[2019-05-29] MEDS: LABETALOL 100 MG TAB PO SCH ×4 (05:39→18:00)
[2019-05-29 06:00] VITALS: BP 124/84
[2019-05-29] MEDS: POTASSIUM CHLORIDE 10 MEQ SR TABLET PO SCH (10:02)
[2019-05-29] MEDS: ASPIRIN 81 MG CHEW TABLET PO SCH (10:03)
[2019-05-29] MEDS: CLOPIDOGREL 75 MG TAB PO SCH (10:03)
[2019-05-29] MEDS: ENOXAPARIN 40 MG/0.4 ML SYRINGE (J1650) SC SCH (10:03)
[2019-05-29] MEDS: amLODIPine 5 MG TAB PO SCH ×2 (10:05→20:02)
[2019-05-29] MEDS: ATORVASTATIN 20 MG TAB PO SCH (10:05)
[2019-05-30 06:00] VITALS: BP 136/90
[2019-05-30] MEDS: LABETALOL 100 MG TAB PO SCH ×4 (06:00→17:31)
[2019-05-30] MEDS: ENOXAPARIN 40 MG/0.4 ML SYRINGE (J1650) SC SCH (09:11)
[2019-05-30] MEDS: ASPIRIN 81 MG CHEW TABLET PO SCH (09:11)
[2019-05-30] MEDS: POTASSIUM CHLORIDE 10 MEQ SR TABLET PO SCH (09:11)
[2019-05-30] MEDS: ATORVASTATIN 20 MG TAB PO SCH (09:11)
[2019-05-30] MEDS: CLOPIDOGREL 75 MG TAB PO SCH (09:11)
[2019-05-30] MEDS: amLODIPine 5 MG TAB PO SCH ×2 (09:12→21:21)
[2019-05-31 06:00] VITALS: BP 129/86
[2019-05-31] MEDS: LABETALOL 100 MG TAB PO SCH ×4 (06:00→17:31)
[2019-05-31] MEDS: amLODIPine 5 MG TAB PO SCH ×2 (08:39→20:27)
[2019-05-31] MEDS: ENOXAPARIN 40 MG/0.4 ML SYRINGE (J1650) SC SCH (08:40)
[2019-05-31] MEDS: ATORVASTATIN 20 MG TAB PO SCH (08:41)
[2019-05-31] MEDS: ASPIRIN 81 MG CHEW TABLET PO SCH (08:41)
[2019-05-31] MEDS: POTASSIUM CHLORIDE 10 MEQ SR TABLET PO SCH (08:41)
[2019-05-31] MEDS: CLOPIDOGREL 75 MG TAB PO SCH (08:41)
[2019-06-01 06:00] VITALS: BP 133/85
[2019-06-01] MEDS: LABETALOL 100 MG TAB PO SCH ×4 (06:00→18:00)
[2019-06-01] MEDS: POTASSIUM CHLORIDE 10 MEQ SR TABLET PO SCH (08:47)
[2019-06-01] MEDS: ENOXAPARIN 40 MG/0.4 ML SYRINGE (J1650) SC SCH (08:47)
[2019-06-01] MEDS: amLODIPine 5 MG TAB PO SCH ×2 (08:47→20:55)
[2019-06-01] MEDS: CLOPIDOGREL 75 MG TAB PO SCH (08:47)
[2019-06-01] MEDS: ASPIRIN 81 MG CHEW TABLET PO SCH (08:47)
[2019-06-01] MEDS: ATORVASTATIN 20 MG TAB PO SCH (08:47)
[2019-06-02] MEDS: LABETALOL 100 MG TAB PO SCH ×2 (05:59)
[2019-06-02 06:00] VITALS: BP 133/87
[2019-06-02] MEDS: ASPIRIN 81 MG CHEW TABLET PO SCH (08:46)
[2019-06-02] MEDS: CLOPIDOGREL 75 MG TAB PO SCH (08:46)
[2019-06-02] MEDS: SENOKOT S TAB PO PRN (08:47)
[2019-06-02] MEDS: POTASSIUM CHLORIDE 10 MEQ SR TABLET PO SCH (08:47)
[2019-06-02] MEDS: ENOXAPARIN 40 MG/0.4 ML SYRINGE (J1650) SC SCH (08:47)
[2019-06-02] MEDS: ATORVASTATIN 20 MG TAB PO SCH (08:47)
[2019-06-02] MEDS: amLODIPine 5 MG TAB PO SCH ×2 (08:47→20:14)
--- NOTE | 2019-06-02 12:10 | IPNPDOC ---
Text Note Date of Service The patient was seen on 06/02/19. NOTE Subjective: pateint feeling well today, working with PT with good progress. she remains optimistic . Says her rash is no longer itchy and almost gone. Objective: Vitals: see below, General Exam: Alert, No Acute Distress Eye Exam: PERRLA, EOMI ENT Exam: Atraumatic, MMM Neck Exam: supple, no JVD Chest Exam: Clear o auscultation, no added sounds. Heart Exam: RRR, no rub , murmur or gallop Abdomen Exam: Normoactive bowel sounds, soft, non tender Extremity Exam: WWP, no edema, non tender Skin Exam: Nl turgor and temperature, Erythematous maculopapular rash in the left axilla. Neuro Exam: 5/5 strength in RUE and RLE. left hemiparesis. Psych Exam: Positive: Mental status NL, Oriented x 3 Labs: pending. Prior labs reviewed. will order new ones. Assessment: 69 yo woman with a previously noted history of hypertension not on any medications with no contact with health care providers for >40y, resident of [place], [place] who recently travelled to [place] a few days prior to presentation for left sided numbness that evolved into flaccid paralysis overnight and presented to the ED >16h after initial symptoms with an initial NIHSS score of 11 per ED and confirmed acute right mast radiata infarction without mass effect or significant hemorrhage on MRI with course c/b NSTEMI in the setting of hypertensive emergency in the setting of CVA. 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 Rash probably contact dermatitis vs drug rash On triamcinolone and nystatin powder will keep area dry Hypertension controlled on amlodipine. Type 2 NSTEMI in the setting of hypertensive emergency with CVA TTE read did not show any WMA, had normal EF and no PFO or clots TTE with bubble study was grossly normal with grade 1 diastolic dysfunction management for stroke and hypertension. Hyperlipidemia: continue lipitor DVT prophylaxis: lovenox Diet: regular Proxy: Diony Jaramillo at [phone] Code status: FULL CODE Dispo: Pending insurance set up VS,Fishbone, I+O VS, Fishbone, I+O Vital Signs Date Time Temp Pulse Resp B/P (MAP) Pulse Ox O2 Delivery O2 Flow Rate FiO2 06/02/19 08:47 75 133/87 06/02/19 06:00 98.2 15 94 Room Air I&O- Last 24 Hours up to 6 AM 06/02/19 06:00 Intake Total 850 ml Output Total 400 ml Balance 450 ml SALENA HOPKINS MD Jun 02, 2019 12:10
[2019-06-03 06:00] VITALS: BP 128/77
[2019-06-03 07:25] LABS: BASO % 0.5 % (0.0-1.0); EOS # 0.2 10^3/uL (0.0-0.5); EOS % 3.7 % (0.0-3.0); HEMATOCRIT 39.8 % (36.0-47.0); HEMOGLOBIN 12.7 g/dl (12.0-15.5); LYMPH # 1.5 10^3/uL (1.5-5.0); LYMPH % 23.3 % (24.0-44.0); MEAN CORPUSCULAR HEMOGLOBIN 29.2 pg (27.0-33.0); MEAN CORPUSCULAR HGB CONC 31.9 g/dl (32.0-36.5); MEAN CORPUSCULAR VOLUME 91.5 fl (80.0-96.0); MONO # 0.6 10^3/uL (0.0-0.8); MONO % 8.4 % (0.0-5.0); NEUTROPHILS # 4.2 10^3/uL (1.5-8.5); NEUTROPHILS % 63.9 % (36.0-66.0); PLATELET COUNT, AUTOMATED 325 10^3/uL (150-450); RED BLOOD COUNT 4.35 10^6/uL (4.00-5.40); WHITE BLOOD COUNT 6.6 10^3/uL (4.0-10.0)
[2019-06-03 07:48] LABS: BLOOD UREA NITROGEN 15 MG/DL (7-18); CALCIUM LEVEL 9.6 MG/DL (8.8-10.2); CARBON DIOXIDE LEVEL 31 MEQ/L (21-32); CHLORIDE LEVEL 107 MEQ/L (98-107); GLOMERULAR FILTRATION RATE > 60.0 (>39); GLUCOSE, FASTING 94 MG/DL (70-100); POTASSIUM SERUM 3.6 MEQ/L (3.5-5.1); SODIUM LEVEL 144 MEQ/L (136-145)
[2019-06-03] MEDS: BISACODYL 5 MG TAB PO PRN (08:48)
[2019-06-03] MEDS: amLODIPine 5 MG TAB PO SCH ×2 (08:49→20:08)
[2019-06-03] MEDS: CLOPIDOGREL 75 MG TAB PO SCH (08:49)
[2019-06-03] MEDS: ENOXAPARIN 40 MG/0.4 ML SYRINGE (J1650) SC SCH (08:49)
[2019-06-03] MEDS: ATORVASTATIN 20 MG TAB PO SCH (08:49)
[2019-06-03] MEDS: POTASSIUM CHLORIDE 10 MEQ SR TABLET PO SCH (08:49)
[2019-06-03] MEDS: ASPIRIN 81 MG CHEW TABLET PO SCH (08:49)
[2019-06-03 20:15] VITALS: BP 142/99
[2019-06-04] MEDS: FLEET ENEMA PR PRN ×2 (00:59→14:12)
[2019-06-04] MEDS: SENOKOT S TAB PO PRN (01:15)
[2019-06-04] MEDS: ASPIRIN 81 MG CHEW TABLET PO SCH (08:41)
[2019-06-04] MEDS: ATORVASTATIN 20 MG TAB PO SCH (08:41)
[2019-06-04] MEDS: ENOXAPARIN 40 MG/0.4 ML SYRINGE (J1650) SC SCH (08:41)
[2019-06-04] MEDS: POTASSIUM CHLORIDE 10 MEQ SR TABLET PO SCH (08:41)
[2019-06-04] MEDS: CLOPIDOGREL 75 MG TAB PO SCH (08:41)
[2019-06-04] MEDS: amLODIPine 5 MG TAB PO SCH ×2 (08:41→20:04)
[2019-06-05 06:00] VITALS: BP 127/78
[2019-06-05] MEDS: ENOXAPARIN 40 MG/0.4 ML SYRINGE (J1650) SC SCH (08:54)
[2019-06-05] MEDS: ATORVASTATIN 20 MG TAB PO SCH (08:54)
[2019-06-05] MEDS: amLODIPine 5 MG TAB PO SCH ×2 (08:54→20:55)
[2019-06-05] MEDS: CLOPIDOGREL 75 MG TAB PO SCH (08:54)
[2019-06-05] MEDS: ASPIRIN 81 MG CHEW TABLET PO SCH (08:54)
[2019-06-05] MEDS: POTASSIUM CHLORIDE 10 MEQ SR TABLET PO SCH (08:54)
[2019-06-06 06:00] VITALS: BP 122/79
[2019-06-06] MEDS: ATORVASTATIN 20 MG TAB PO SCH (10:14)
[2019-06-06] MEDS: CLOPIDOGREL 75 MG TAB PO SCH (10:14)
[2019-06-06] MEDS: ASPIRIN 81 MG CHEW TABLET PO SCH (10:14)
[2019-06-06] MEDS: POTASSIUM CHLORIDE 10 MEQ SR TABLET PO SCH (10:16)
[2019-06-06] MEDS: amLODIPine 5 MG TAB PO SCH ×2 (10:18→20:37)
[2019-06-06] MEDS: ENOXAPARIN 40 MG/0.4 ML SYRINGE (J1650) SC SCH (10:19)
[2019-06-06] MEDS ORDERED: CEPACOL LOZENGE PO PRN (11:30)
[2019-06-06] MEDS: LORATADINE 10 MG TAB PO SCH (12:46)
[2019-06-07 06:00] VITALS: BP 139/87
[2019-06-07 07:07] LABS: BASO % 0.3 % (0.0-1.0); EOS # 0.2 10^3/uL (0.0-0.5); EOS % 3.8 % (0.0-3.0); HEMATOCRIT 37.4 % (36.0-47.0); HEMOGLOBIN 12.2 g/dl (12.0-15.5); LYMPH # 1.2 10^3/uL (1.5-5.0); LYMPH % 20.9 % (24.0-44.0); MEAN CORPUSCULAR HEMOGLOBIN 29.8 pg (27.0-33.0); MEAN CORPUSCULAR HGB CONC 32.6 g/dl (32.0-36.5); MEAN CORPUSCULAR VOLUME 91.2 fl (80.0-96.0); MONO # 0.5 10^3/uL (0.0-0.8); NEUTROPHILS # 3.8 10^3/uL (1.5-8.5); NEUTROPHILS % 66.7 % (36.0-66.0); PLATELET COUNT, AUTOMATED 314 10^3/uL (150-450); WHITE BLOOD COUNT 5.7 10^3/uL (4.0-10.0)
[2019-06-07 07:38] LABS: BLOOD UREA NITROGEN 14 MG/DL (7-18); CALCIUM LEVEL 9.1 MG/DL (8.8-10.2); CARBON DIOXIDE LEVEL 31 MEQ/L (21-32); CHLORIDE LEVEL 105 MEQ/L (98-107); CREATININE FOR GFR 0.66 MG/DL (0.55-1.30); GLOMERULAR FILTRATION RATE > 60.0 (>39); GLUCOSE, FASTING 96 MG/DL (70-100); POTASSIUM SERUM 3.6 MEQ/L (3.5-5.1); SODIUM LEVEL 142 MEQ/L (136-145)
[2019-06-07] MEDS: POTASSIUM CHLORIDE 10 MEQ SR TABLET PO SCH (08:30)
[2019-06-07] MEDS: ENOXAPARIN 40 MG/0.4 ML SYRINGE (J1650) SC SCH (08:30)
[2019-06-07] MEDS: ATORVASTATIN 20 MG TAB PO SCH (08:30)
[2019-06-07] MEDS: ASPIRIN 81 MG CHEW TABLET PO SCH (08:30)
[2019-06-07] MEDS: CLOPIDOGREL 75 MG TAB PO SCH (08:31)
[2019-06-07] MEDS: amLODIPine 5 MG TAB PO SCH ×2 (08:31→21:23)
[2019-06-07] MEDS: LORATADINE 10 MG TAB PO SCH (08:32)
--- NOTE | 2019-06-07 08:38 | IPNPDOC ---
Text Note Date of Service The patient was seen on 06/07/19. NOTE Subjective: No issues this week. Patient feeling well today, working with PT with good progress. she remains optimistic . Says her rash is gone. She does complain of post nasal drip and asked for loratadine which she said helps. No fever or chills, nochest pin or sob, no abdominal pain nausea or vomiting, having bowel movements regularly. Objective: Vitals: see below, General Exam: Alert, No Acute Distress Eye Exam: PERRLA, EOMI ENT Exam: Atraumatic, MMM Neck Exam: supple, no JVD Chest Exam: Clear o auscultation, no added sounds. Heart Exam: RRR, no rub , murmur or gallop Abdomen Exam: Normoactive bowel sounds, soft, non tender Extremity Exam: WWP, no edema, non tender Skin Exam: Nl turgor and temperature, Erythematous maculopapular rash in the left axilla. Neuro Exam: 5/5 strength in RUE and RLE. left hemiparesis. Psych Exam: Positive: Mental status NL, Oriented x 3 Labs: Labs reviewed Assessment: 69 yo woman with a previously noted history of hypertension not on any medications with no contact with health care providers for >40y, resident of [place], [place] who recently travelled to [place] a few days prior to presentation for left sided numbness that evolved into flaccid paralysis overnight and presented to the ED >16h after initial symptoms with an initial NIHSS score of 11 per ED and confirmed acute right mast radiata infarction without mass effect or significant hemorrhage on MRI with course c/b NSTEMI in the setting of hypertensive emergency in the setting of CVA. 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 Rash resolved. improved probably contact dermatitis vs drug rash cont nystatin powder and triamcinolone prn will keep area dry Hypertension controlled on amlodipine. Type 2 NSTEMI in the setting of hypertensive emergency with CVA TTE read did not show any WMA, had normal EF and no PFO or clots TTE with bubble study was grossly normal with grade 1 diastolic dysfunction management for stroke and hypertension. Hyperlipidemia: continue lipitor DVT prophylaxis: lovenox Diet: regular Proxy: Diony Jaramillo at [phone] Code status: FULL CODE Dispo: Rehab .Pending insurance set up VS,Fishbone, I+O VS, Fishbone, I+O Vital Signs Date Time Temp Pulse Resp B/P (MAP) Pulse Ox O2 Delivery O2 Flow Rate FiO2 06/06/19 20:37 87 137/82 06/06/19 06:00 98.4 16 97 Room Air I&O- Last 24 Hours up to 6 AM 06/07/19 05:59 Intake Total 600 ml Output Total 0 ml Balance 600 ml SALENA HOPKINS MD Jun 07, 2019 06:51
[2019-06-08 06:00] VITALS: BP 127/88
[2019-06-08] MEDS: LORATADINE 10 MG TAB PO SCH (08:52)
[2019-06-08] MEDS: CLOPIDOGREL 75 MG TAB PO SCH (08:52)
[2019-06-08] MEDS: POTASSIUM CHLORIDE 10 MEQ SR TABLET PO SCH (08:52)
[2019-06-08] MEDS: ASPIRIN 81 MG CHEW TABLET PO SCH (08:52)
[2019-06-08] MEDS: ATORVASTATIN 20 MG TAB PO SCH (08:52)
[2019-06-08] MEDS: amLODIPine 5 MG TAB PO SCH ×2 (08:52→20:09)
[2019-06-08] MEDS: ENOXAPARIN 40 MG/0.4 ML SYRINGE (J1650) SC SCH (08:52)
[2019-06-09] MEDS: ASPIRIN 81 MG CHEW TABLET PO SCH (08:25)
[2019-06-09] MEDS: amLODIPine 5 MG TAB PO SCH ×2 (08:25→20:31)
[2019-06-09] MEDS: LORATADINE 10 MG TAB PO SCH (08:25)
[2019-06-09] MEDS: POTASSIUM CHLORIDE 10 MEQ SR TABLET PO SCH (08:25)
[2019-06-09] MEDS: CLOPIDOGREL 75 MG TAB PO SCH (08:25)
[2019-06-09] MEDS: ATORVASTATIN 20 MG TAB PO SCH (08:26)
[2019-06-09] MEDS: ENOXAPARIN 40 MG/0.4 ML SYRINGE (J1650) SC SCH (08:26)
[2019-06-09] MEDS: TRIAMCINOLONE ACET 0.1% OINTMENT 15 GM TOP PRN (21:40)
[2019-06-10 06:00] VITALS: BP 117/68
[2019-06-10] MEDS: CLOPIDOGREL 75 MG TAB PO SCH (08:19)
[2019-06-10] MEDS: ASPIRIN 81 MG CHEW TABLET PO SCH (08:19)
[2019-06-10] MEDS: ENOXAPARIN 40 MG/0.4 ML SYRINGE (J1650) SC SCH (08:19)
[2019-06-10] MEDS: ATORVASTATIN 20 MG TAB PO SCH (08:19)
[2019-06-10 08:20] VITALS: BP 133/80
[2019-06-10] MEDS: POTASSIUM CHLORIDE 10 MEQ SR TABLET PO SCH (08:20)
[2019-06-10] MEDS: LORATADINE 10 MG TAB PO SCH (08:20)
[2019-06-10] MEDS: amLODIPine 5 MG TAB PO SCH (08:20)
[2019-06-10] MEDS ORDERED: PEG1POW PO (13:40)
[2019-06-10] MEDS ORDERED: CLAR10TA7 PO (13:40)
[2019-06-10] MEDS ORDERED: SORE15LO PO (13:40)
[2019-06-10] MEDS ORDERED: BISAC5TA PO (13:40)
[2019-06-10] MEDS ORDERED: CLOP75TA2 PO (13:40)
[2019-06-10] MEDS ORDERED: NYAM10003 TOP (13:40)
[2019-06-10] MEDS ORDERED: ATOR1TAB21 PO (13:40)
[2019-06-10] MEDS ORDERED: SENN-52 PO (13:40)
[2019-06-10] MEDS ORDERED: TRIA1OI TOP (13:40)
[2019-06-10] MEDS ORDERED: DIPH25CA32 PO (13:40)
[2019-06-10] MEDS ORDERED: KLOR10TA76 PO (13:40)
[2019-06-10] MEDS ORDERED: AMLO5TAB6 PO (13:40)
--- NOTE | 2019-06-12 23:00 | DS.PDOC ---
Discharge Summary General Date of Admission May 14, 2019 at 10:56 Date of Discharge 06/10/19 Discharge Summary PROCEDURES PERFORMED DURING STAY: [None]. DISCHARGE DIAGNOSES: Acute right mast radiata infarction with left hemiparesis Hypertension Rash Hyperlipidemia Type II NSTEMI due to Hypertensive emergency with CVA. SECONDARY DIAGNOSIS: COMPLICATIONS/CHIEF COMPLAINT: Cerebral Vascular Accident. HISTORY OF PRESENT ILLNESS: see history and physical HOSPITAL COURSE: Labs: Labs reviewed Assessment: 69 yo woman with a previously noted history of hypertension not on any medications with no contact with health care providers for >40y, resident of [place], [place] who recently travelled to [place] a few days prior to presentation for left sided numbness that evolved into flaccid paralysis overnight and presented to the ED >16h after initial symptoms with an initial NIHSS score of 11 per ED and confirmed acute right mast radiata infarction without mass effect or significant hemorrhage on MRI with course c/b NSTEMI in the setting of hypertensive emergency in the setting of CVA. 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 Rash resolved. probably contact dermatitis vs drug rash cont nystatin powder and triamcinolone prn keep area dry Hypertension controlled on amlodipine. Type 2 NSTEMI in the setting of hypertensive emergency with CVA TTE read did not show any WMA, had normal EF and no PFO or clots TTE with bubble study was grossly normal with grade 1 diastolic dysfunction management for stroke and hypertension. Hyperlipidemia: continue lipitor DVT prophylaxis: lovenox Diet: regular Proxy: Diony Jaramillo at [phone] Code status: FULL CODE DISCHARGE MEDICATIONS: Please see below. ALLERGIES: Please see below. PHYSICAL EXAMINATION ON DISCHARGE: VITAL SIGNS: Please see below. General Exam: Alert, No Acute Distress Eye Exam: PERRLA, EOMI ENT Exam: Atraumatic, MMM Neck Exam: supple, no JVD Chest Exam: Clear o auscultation, no added sounds. Heart Exam: RRR, no rub , murmur or gallop Abdomen Exam: Normoactive bowel sounds, soft, non tender Extremity Exam: WWP, no edema, non tender Skin Exam: Nl turgor and temperature, Erythematous maculopapular rash in the left axilla. Neuro Exam: 5/5 strength in RUE and RLE. left hemiparesis. Psych Exam: Positive: Mental status NL, Oriented x 3 LABORATORY DATA: Please see below. ACTIVITY: [As tolerated]. DIET: As tolerated DISPOSITION: 62 D/T Rehab Facility. DISCHARGE CONDITION: [Stable]. TIME SPENT ON DISCHARGE: 35 minutes. Vital Signs/I&Os Vital Signs Date Time Temp Pulse Resp B/P (MAP) Pulse Ox O2 Delivery O2 Flow Rate FiO2 06/10/19 08:20 78 133/80 06/10/19 06:00 97.4 20 97 06/09/19 06:00 Room Air 134.0 83 Discharge Medications Scheduled Amlodipine Besylate (Amlodipine Besylate) 5 Mg Tablet, 5 MG PO BID Atorvastatin Calcium (Atorvastatin Calcium) 20 Mg Tablet, 20 MG PO DAILY Clopidogrel Bisulfate (Clopidogrel) 75 Mg Tablet, 75 MG PO DAILY Loratadine (Claritin) 10 Mg Tablet, 10 MG PO DAILY Potassium Chloride (Klor-Con M10) 10 Meq Tab.er.prt, 20 MEQ PO DAILY Scheduled PRN Aspirin (Aspir 81) 81 Mg Tablet.dr, 81 MG PO ONCE PRN for STROKE SYMPTOMS, (R eported) Benzocaine/Menthol (Sore Throat Lozenge) 1 Each Lozenge, 1 WOJCIECH PO Q6HP PRN for SORE THROAT Bisacodyl (Bisacodyl) 5 Mg Tablet.dr, 10 MG PO DAILYPRN PRN for CONSTIPATION Diphenhydramine HCl (Diphenhydramine HCl) 25 Mg Capsule, 25 MG PO Q8HP PRN for ITCHING Nystatin (Nyamyc) 15 Gm Powder, 0 DOSE TOP Q6HP PRN for itching Polyethylene Glycol 3350 (Polyethylene Glycol 3350) 17 Gm Powd.pack, 1 PKT PO D AILYPRN PRN for CONSTIPATION Sennosides/Docusate Sodium (Senna Plus Tablet) 1 Each Tablet, 2 TAB PO BIDP PRN for CONSTIPATION Triamcinolone Acet (Triamcinolone Acetonide 0.1% Oint) 15 Gm Oint...g., 0 DOSE TOP Q6HP PRN for ITCHING Allergies Coded Allergies: SEASONAL ALLERGIES (Verified Allergy, Unknown, 05/14/19) lactose (Verified Allergy, Unknown, 05/14/19) SALENA HOPKINS MD Jun 12, 2019 23:00
== END 2019-06-10 14:49 | DRG 199 ==
LOC: M ED 08:33 → M ED INP 10:56 → M PCU 13:20 → M MSPAV 05-20 14:30
PROVIDERS: ADMIT Internal Medicine; ATTEND Internal Medicine Nephrology
DX: I16.1 Hypertensive emergency (principal); I21.4 Non-ST elevation (NSTEMI) myocardial infarction; I63.9 Cerebral infarction, unspecified; I69.354 Hemiplegia and hemiparesis following cerebral infarction affecting left non-dominant side; E78.5 Hyperlipidemia, unspecified; R21 Rash and other nonspecific skin eruption; Z79.899 Other long term (current) drug therapy; E73.9 Lactose intolerance, unspecified; Z79.82 Long term (current) use of aspirin; Z91.19 Patient's noncompliance with other medical treatment and regimen; I10 Essential (primary) hypertension

== ENCOUNTER 2019-06-10 14:03 | Inpatient (IN) | payer MEDICARE, MEDICAID ==
[~2019-06-10] VITALS: Ht 162.6 cm; Wt 56.9 kg
[~2019-06-10 14:03] MED LIST: AMLO5TAB6 PO; ASPI81TA85 PO; ATOR1TAB21 PO; BISAC5TA PO; CLAR10TA7 PO; CLOP75TA2 PO; DIPH25CA32 PO; KLOR10TA76 PO; NYAM10003 TOP; PEG1POW PO; SENN-52 PO; SORE15LO PO; TRIA1OI TOP
[2019-06-10 15:00] VITALS: BP 153/85
--- NOTE | 2019-06-10 18:02 | HPEPDOC ---
Senior Qa Tester Note DATE OF ADMISSION: 06-10-19 SOURCE OF ADMISSION INFORMATION: [facility] record/patient CHIEF COMPLAINT: stroke HISTORY OF PRESENT ILLNESS: 69F pmh HTN that was not treated who was visiting family in [place] when she d eveloped left sided paresis and difficulty speaking and presented to [facility] ED on 08-14-18 where she was found to be in hypertensive emergency with sBPs greater in the 250s. CTH was negative for intracranial hemorrhage and MRI showed Acute right mast radiata infarction without mass effect or significant hemorrhage. She was noted to have a type 2 NSTEMI as well with TTE showing, Normal global left ventricular systolic function with mild concentric left ventricular hypertrophy. There are some features of grade 1 left ventricular diastolic dysfunction manifested by abnormal relaxation and bubble study was negative. Carotid US did not show significant stenosis of bilat ICAs and CTA showed, No intracranial high-grade stenosis or vessel occlusion. 4- 5 mm right PCoA aneurysm. She had a change in mental status on 05-17-19 for which repeat CTH did not show acute hemorrhage or new infarct. Neurology recommended Asa and Plavix in addition to statin therapy and performed an EEG which was negative for epileptic activity. She was evaluated by therapy and had deficits in mobility and ADls below her prior level of function and deemed medially appropriate for discharge to ARU on 06-10-19 REVIEW OF SYSTEMS: The following is a completed review of systems and has been reviewed. Review of systems otherwise unremarkable. PAIN: Patient self reports no pain EYES: No recent vision changes EARS, NOSE, & THROAT: No throat pain, or dysphagia, or rhinorrhea CARDIOVASCULAR: Denies chest pain or palpitations PULMONARY: Denies shortness of breath GASTROINTESTINAL: Denies constipation/diarrhea GENITOURINARY:increased frequency and urge MUSCULOSKELETAL: left sided weakness NEUROLOGICAL:+hemiplegia with stroke HEMATOLOGICAL: denies easy bruising SKIN: left hand rash PSYCHIATRIC: Unremarkable All other review of systems found to be negative. PAST MEDICAL HISTORY: as per HPI PAST SURGICAL HISTORY: ALLERGIES: Please see below. MEDICATIONS: Please see below. FAMILY HISTORY: sister with stroke SOCIAL HISTORY: lives in the [place], no etoh/smoking/illicit drug use DIET: low-sodium PHYSICAL EXAMINATION: VITAL SIGNS: Please see below. GENERAL: Pleasant and cooperative. No acute distress. HEENT: PERRL. Extraocular movements intact. Clear conjunctiva CARDIOVASCULAR: Regular rate and rhythm. No murmurs, rubs, or gallops LUNGS: Clear to auscultation bilaterally. No wheezes. No rhonchi ABDOMEN: Soft, nontender, nondistended. Positive bowel sounds. Normal active bowel sounds NEUROLOGICAL: Alert and oriented times three. Cranial nerves II through XII grossly intact except left facial droop. Sensation grossly intact to light touch all 4 limbs Left elbow flexor tone 1/4, elbow extensors 2/4, wrist flexors 1/4, finger flexors 1/4 MAS +clonus >20 beats on exam on LLE EXTREMITIES: 5\5 strength right upper extremities. LUE 1/5 arm abduction, elbow flexion/extension, 0/5 wrist extension, 1/5 oven press tender 5\5 strength right lower extremity. 4/5 strength in left hip flexion/knee extension, 0/5 ankle DF/EHL, 2/5 ankle PF SKIN: left dorsal hand with peeling skin LABORATORY DATA: Please see below. IMAGING:Imaging documentation personally reviewed by record FUNCTIONAL STATUS: Premorbid: Independent with all activities of daily life as well as mobility On Admission: Stand-by assist with WBQC able to walk 150 feet, SBA for upper body dressing, bed, chair, and toilet transfers, contact guard for stairs GOALS: Mod-I with quad cane community distances, stairs, fall recovery, toileting, bathing, dressing, kitchen and laundry tasks, medical optimization, assess for DMEs ASSESSMENT:69-year-old F with past medical history of HTN who presents status post right mast radiata infarct PLAN: 1. Rehab: PT- advance gait training using AFO, work on fall recovery and dynamic balance OT- strengthen LUE, stretch, teach scapular stabilization exercises, consider Estim and taping EXPORT AGENT- will defer for now as was seen recently on inpatient 2. Neuro: s/p right mast radiata infarct with significant left sided paresis and spasticity, c/u ASA, plavix and statin for secondary stroke prevention -patient wishes not to start Prozac for motor recovery, but is open to baclofen for tone, she denies hx of seizures -will need neuro follow-up in the [place] 3. cardiac: Htn c/u amlodipine- medicine consulted to assist in management -HLD c/u statin 4. resp: encourage incentive spirometry 5. : monitor PVRs, will order UA and Ucx given dysuria 6. DVT ppx: lovenox, ambulating well 7. GI ppx: protonix 8. Skin: left dorsal hand peeling, apply lotion BID 9. Dispo: TBD POST ADMISSION PHYSICIAN EVALUATION: Medical and functional status: Description of medical status, medical assessment: As above. Rehabilitation diagnosis and current and prior cold morbid medical conditions as above. Risk of complications and plans to mitigate them as above. Description of functional status current status is as above. Prior status as above. Status compared to preadmission: There are no clinically significant differences between the patient's current status and the information described on the preadmission screening document. Treatment plan anticipated: Treatment plan is as described above. Required disciplines including physical therapy, occupational therapy, others as noted above Intensity of services: 3 hours a day, 6 days a week. Special considerations: There are no specific special or safety considerations that would likely preclude immediate implementation of an intensive rehabilitation program or subsequently influence the plan of care ATTESTATION: Considering all the information above, it is my best judgment that this patient requires intensive rehabilitation therapy as described above and an inpatient hospital environment due to the complexity of nursing, medical, and rehabilitation needs required by the patient. Furthermore, this patient can reasonably be expected to participate in an benefit from an inpatient rehabilitation stay with an interdisciplinary team approach to the delivery of rehabilitation care under the direction and supervision of rehabilitation physician PROGNOSIS: Excellent ESTIMATED LENGTH OF STAY:12-14 days. PROJECTED DISCHARGE DESTINATION: Home with family support and any durable medical equipment required to increase functional safety and mobility TIME SPENT COUNSELING AND COORDINATING INITIAL CARE: Greater than 70 minutes. Vital Signs Vital Sign - Last 24 Hours 06/10/19 15:00 Temp 99.5 Pulse 94 Resp 18 B/P (MAP) 153/85 (107) Pulse Ox 99 O2 Delivery Room Air Home Medications Scheduled Amlodipine Besylate (Amlodipine Besylate) 5 Mg Tablet, 5 MG PO BID Atorvastatin Calcium (Atorvastatin Calcium) 20 Mg Tablet, 20 MG PO DAILY Clopidogrel Bisulfate (Clopidogrel) 75 Mg Tablet, 75 MG PO DAILY Loratadine (Claritin) 10 Mg Tablet, 10 MG PO DAILY Potassium Chloride (Klor-Con M10) 10 Meq Tab.er.prt, 20 MEQ PO DAILY Scheduled PRN Aspirin (Aspir 81) 81 Mg Tablet.dr, 81 MG PO ONCE PRN for STROKE SYMPTOMS, (Reported) Benzocaine/Menthol (Sore Throat Lozenge) 1 Each Lozenge, 1 WOJCIECH PO Q6HP PRN for SORE THROAT Bisacodyl (Bisacodyl) 5 Mg Tablet.dr, 10 MG PO DAILYPRN PRN for CONSTIPATION Diphenhydramine HCl (Diphenhydramine HCl) 25 Mg Capsule, 25 MG PO Q8HP PRN for ITCHING Nystatin (Nyamyc) 15 Gm Powder, 0 DOSE TOP Q6HP PRN for itching Polyethylene Glycol 3350 (Polyethylene Glycol 3350) 17 Gm Powd.pack, 1 PKT PO DAILYPRN PRN for CONSTIPATION Sennosides/Docusate Sodium (Senna Plus Tablet) 1 Each Tablet, 2 TAB PO BIDP PRN for CONSTIPATION Triamcinolone Acet (Triamcinolone Acetonide 0.1% Oint) 15 Gm Oint...g., 0 DOSE TOP Q6HP PRN for ITCHING Allergies Coded Allergies: SEASONAL ALLERGIES (Verified Allergy, Unknown, 05/14/19) lactose (Verified Allergy, Unknown, 05/14/19) A-FIB/CHADSVASC A-FIB History Current/History of A-Fib/PAF?: No MIKI MIDDLETON MD Jun 10, 2019 18:02
[2019-06-10] MEDS ORDERED: ACETAMINOPHEN TAB 650MG DOSE (2X325MG) PO PRN (18:15)
[2019-06-10] MEDS ORDERED: diphenhydrAMINE 25 MG CAP PO PRN (18:15)
[2019-06-10] MEDS ORDERED: MOM 30ML SUSPENSION UDC PO PRN (18:15)
[2019-06-10] MEDS ORDERED: FLUoxetine 20 MG CAP PO SCH (21:00)
[2019-06-10] MEDS: SENNA 8.6 MG TAB (SENOKOT) PO SCH (21:00)
[2019-06-10] MEDS: amLODIPine 5 MG TAB PO SCH (21:51)
[2019-06-10] MEDS: DOCUSATE SODIUM 100 MG CAP PO SCH (21:51)
[2019-06-11 05:53] LABS: BASO % 0.5 % (0.0-1.0); EOS # 0.2 10^3/uL (0.0-0.5); EOS % 3.7 % (0.0-3.0); HEMATOCRIT 40.4 % (36.0-47.0); HEMOGLOBIN 12.9 g/dl (12.0-15.5); LYMPH # 1.5 10^3/uL (1.5-5.0); LYMPH % 24.6 % (24.0-44.0); MEAN CORPUSCULAR HEMOGLOBIN 29.5 pg (27.0-33.0); MEAN CORPUSCULAR HGB CONC 31.9 g/dl (32.0-36.5); MEAN CORPUSCULAR VOLUME 92.2 fl (80.0-96.0); MONO # 0.5 10^3/uL (0.0-0.8); MONO % 8.3 % (0.0-5.0); NEUTROPHILS # 3.7 10^3/uL (1.5-8.5); NEUTROPHILS % 62.6 % (36.0-66.0); PLATELET COUNT, AUTOMATED 337 10^3/uL (150-450); RED BLOOD COUNT 4.38 10^6/uL (4.00-5.40); WHITE BLOOD COUNT 5.9 10^3/uL (4.0-10.0)
[2019-06-11 06:00] VITALS: BP 131/90
[2019-06-11 06:21] LABS: ALBUMIN 3.4 GM/DL (3.2-5.2); ALT/SGPT 51 U/L (12-78); BILIRUBIN,TOTAL 0.4 MG/DL (0.2-1.0); BLOOD UREA NITROGEN 14 MG/DL (7-18); CALCIUM LEVEL 9.4 MG/DL (8.8-10.2); CARBON DIOXIDE LEVEL 32 MEQ/L (21-32); CHLORIDE LEVEL 107 MEQ/L (98-107); CREATININE FOR GFR 0.68 MG/DL (0.55-1.30); GLOMERULAR FILTRATION RATE > 60.0 (>39); GLUCOSE, FASTING 97 MG/DL (70-100); POTASSIUM SERUM 3.7 MEQ/L (3.5-5.1); SODIUM LEVEL 142 MEQ/L (136-145); TOTAL PROTEIN 7.1 GM/DL (6.4-8.2)
[2019-06-11] MEDS: ATORVASTATIN 20 MG TAB PO SCH (09:19)
[2019-06-11] MEDS: ENOXAPARIN 40 MG/0.4 ML SYRINGE (J1650) SC SCH (09:19)
[2019-06-11] MEDS: CLOPIDOGREL 75 MG TAB PO SCH (09:19)
[2019-06-11] MEDS: ASPIRIN 81 MG CHEW TABLET PO SCH (09:19)
[2019-06-11] MEDS: PANTOPRAZOLE 40MG TAB (PROTONIX) PO SCH (09:19)
[2019-06-11] MEDS: BACLOFEN 5MG PER 1/2 TABLET PO SCH ×2 (09:19→20:10)
[2019-06-11] MEDS: LORATADINE 10 MG TAB PO SCH (09:19)
[2019-06-11] MEDS: amLODIPine 5 MG TAB PO SCH ×2 (09:20→20:11)
[2019-06-11] MEDS: POTASSIUM CHLORIDE 10 MEQ SR TABLET PO SCH (09:21)
[2019-06-11] MEDS: DOCUSATE SODIUM 100 MG CAP PO SCH ×2 (09:21→20:12)
[2019-06-11 14:00] VITALS: BP 141/80
--- NOTE | 2019-06-11 18:19 | CR.PDOC ---
General Date of Consultation: Jun 11, 2019 Referring Provider: MIKI MIDDLETON MD Consultation REASON FOR CONSULTATION/CHIEF COMPLAINT: [Medical management in patient with right CVA]. HISTORY OF PRESENT ILLNESS: [This is a 69-year-old female who acutely developed left sided weakness to her upper and lower extremity. She was unable to maintain her balance or gait and fell. She was found to have a subacute infarct to her right mast radiata and a small 4-5 mm aneurysm to her posterior communicating artery. Residual deficits include significant left lower extremity weakness and flaccid paralysis to her left upper extremity. She was felt to be reasonably good candidate for the acute rehabilitation unit. Of interest, the patient states that in retrospect she noted visual changes in the form of clouding vision and then intermittent weakness to her left upper extremity. She also had fluctuating balance. These preceded her acute event.]. ALLERGIES: Please see below. HOME MEDICATIONS: Please see below. PAST MEDICAL HISTORY: The patient reportedly had a history of hypertension for which she is not on any medication. She otherwise has not seen a physician in 40 years. PAST SURGICAL HISTORY: None FAMILY HISTORY: The patient has a sister from stroke. SOCIAL HISTORY: Employment: [The patient had worked for a short time at the [employer]. 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 GENERAL APPEARANCE: [The patient is seen while working with physical therapy; she is doing quite well]. HEENT: [The patient neck is supple with no adenopathy or thyromegaly, her oral mucosa is moist]. RESPIRATORY: [Clear to auscultation]. CARDIOVASCULAR: [Regular rate and rhythm]. ABDOMEN: [Soft, flat, nontender, nondistended]. EXTREMITIES: [No peripheral edema, patient has an AFO to her left lower extremity]. NEUROLOGICAL: [Patient is ambulatory with moderate assistance with a quad cane. She does have unbalanced gait. She has some left facial droop, but otherwise does not have dysphagia or dysphasia. She has remarkable flaccid paralysis to h er left upper extremity.]. PSYCHIATRIC: [Patient is fully cooperative, but has a flat affect]. LABORATORY DATA: Please see below. ASSESSMENT/PLAN: 1. Acute CVA. The patient essentially has left-sided hemiparesis. She is expected to do well with physical therapy in recovering significant function. The patient is right hand dominant. She is hopeful of returning home to the [place]. We have explained to the patient that the best chances of recovery and prevention of recurrence is medication and therapy. Her medication regimen includes aspirin, antilipid agent, and antihypertensive. She states she is not used to taking medication but is hopeful that she can remain compliant. 2. Essential hypertension. Patient has been placed on Norvasc for blood pressure control. Vital Signs/I&O Vital Signs Date Time Temp Pulse Resp B/P (MAP) Pulse Ox O2 Delivery O2 Flow Rate FiO2 06/11/19 14:00 99.7 96 18 141/80 (100) 96 Room Air I&O- Last 24 Hours up to 6 AM 06/11/19 06:00 Intake Total 460 ml Output Total 400 ml Balance 60 ml Laboratory Data Labs 24H Laboratory Tests 2 06/11/19 05:36: Immature Granulocyte % (Auto) 0.3, Neutrophils (%) (Auto) 62.6, Lymphocytes (%) (Auto) 24.6, Monocytes (%) (Auto) 8.3H, Eosinophils (%) (Auto) 3.7H, Basophils (%) (Auto) 0.5, Neutrophils # (Auto) 3.7, Lymphocytes # (Auto) 1.5, Monocytes # (Auto) 0.5, Eosinophils # (Auto) 0.2, Basophils # (Auto) 0.0, Nucleated Red Blood Cells % (auto) 0.0, Anion Gap 3L, Glomerular Filtration Rate > 60.0, Calcium Level 9.4, Total Bilirubin 0.4, Aspartate Amino Transf (AST/SGOT) 26, Alanine Aminotransferase (ALT/SGPT) 51, Alkaline Phosphatase 96, Total Protein 7.1, Albumin 3.4, Albumin/Globulin Ratio 0.92L CBC/BMP Laboratory Tests 06/11/19 05:36 Allergies Coded Allergies: SEASONAL ALLERGIES (Verified Allergy, Unknown, 05/14/19) lactose (Verified Allergy, Unknown, 05/14/19) Home Medications Scheduled Amlodipine Besylate (Amlodipine Besylate) 5 Mg Tablet, 5 MG PO BID, #60 Atorvastatin Calcium (Atorvastatin Calcium) 20 Mg Tablet, 20 MG PO DAILY, #30 Clopidogrel Bisulfate (Clopidogrel) 75 Mg Tablet, 75 MG PO DAILY, #30 Loratadine (Claritin) 10 Mg Tablet, 10 MG PO DAILY, #30 Potassium Chloride (Klor-Con M10) 10 Meq Tab.er.prt, 20 MEQ PO DAILY, #30 Scheduled PRN Aspirin (Aspir 81) 81 Mg Tablet.dr, 81 MG PO ONCE PRN for STROKE SYMPTOMS, (Reported) Benzocaine/Menthol (Sore Throat Lozenge) 1 Each Lozenge, 1 WOJCIECH PO Q6HP PRN for SORE THROAT, #20 Bisacodyl (Bisacodyl) 5 Mg Tablet.dr, 10 MG PO DAILYPRN PRN for CONSTIPATION, #30 Diphenhydramine HCl (Diphenhydramine HCl) 25 Mg Capsule, 25 MG PO Q8HP PRN for ITCHING, #30 Nystatin (Nyamyc) 15 Gm Powder, 0 DOSE TOP Q6HP PRN for itching, #1 Polyethylene Glycol 3350 (Polyethylene Glycol 3350) 17 Gm Powd.pack, 1 PKT PO DAILYPRN PRN for CONSTIPATION, #10 Sennosides/Docusate Sodium (Senna Plus Tablet) 1 Each Tablet, 2 TAB PO BIDP PRN for CONSTIPATION, #30 Triamcinolone Acet (Triamcinolone Acetonide 0.1% Oint) 15 Gm Oint...g., 0 DOSE TOP Q6HP PRN for ITCHING, #60 ARCENIO FELDER MD Jun 11, 2019 18:19
[2019-06-11 20:00] VITALS: BP 133/85
[2019-06-11] MEDS: SENNA 8.6 MG TAB (SENOKOT) PO SCH (20:12)
[2019-06-12 06:00] VITALS: BP 111/68
[2019-06-12] MEDS: ATORVASTATIN 20 MG TAB PO SCH (08:45)
[2019-06-12] MEDS: ENOXAPARIN 40 MG/0.4 ML SYRINGE (J1650) SC SCH (08:45)
[2019-06-12] MEDS: PANTOPRAZOLE 40MG TAB (PROTONIX) PO SCH (08:45)
[2019-06-12] MEDS: ASPIRIN 81 MG CHEW TABLET PO SCH (08:45)
[2019-06-12] MEDS: CLOPIDOGREL 75 MG TAB PO SCH (08:45)
[2019-06-12] MEDS: BACLOFEN 5MG PER 1/2 TABLET PO SCH ×2 (08:45→22:36)
[2019-06-12] MEDS: amLODIPine 5 MG TAB PO SCH ×2 (08:45→22:37)
[2019-06-12] MEDS: DOCUSATE SODIUM 100 MG CAP PO SCH ×3 (08:46→22:35)
[2019-06-12] MEDS: POTASSIUM CHLORIDE 10 MEQ SR TABLET PO SCH (08:46)
[2019-06-12] MEDS: LORATADINE 10 MG TAB PO SCH (08:46)
[2019-06-12 14:00] VITALS: BP 151/77
[2019-06-12 20:00] VITALS: BP 148/80
[2019-06-12] MEDS: SENNA 8.6 MG TAB (SENOKOT) PO SCH (22:35)
[2019-06-13 06:00] VITALS: BP 138/79
[2019-06-13 06:14] LABS: HEMATOCRIT 37.3 % (36.0-47.0); MEAN CORPUSCULAR HEMOGLOBIN 29.6 pg (27.0-33.0); MEAN CORPUSCULAR HGB CONC 32.2 g/dl (32.0-36.5); MEAN CORPUSCULAR VOLUME 92.1 fl (80.0-96.0); PLATELET COUNT, AUTOMATED 311 10^3/uL (150-450); RED BLOOD COUNT 4.05 10^6/uL (4.00-5.40); WHITE BLOOD COUNT 6.7 10^3/uL (4.0-10.0)
[2019-06-13] MEDS: DOCUSATE SODIUM 100 MG CAP PO SCH ×2 (09:00→22:14)
[2019-06-13] MEDS: BACLOFEN 5MG PER 1/2 TABLET PO SCH ×2 (09:37→22:13)
[2019-06-13] MEDS: ASPIRIN 81 MG CHEW TABLET PO SCH (09:37)
[2019-06-13] MEDS: CLOPIDOGREL 75 MG TAB PO SCH (09:37)
[2019-06-13] MEDS: ATORVASTATIN 20 MG TAB PO SCH (09:38)
[2019-06-13] MEDS: LORATADINE 10 MG TAB PO SCH (09:38)
[2019-06-13] MEDS: amLODIPine 5 MG TAB PO SCH ×2 (09:38→22:13)
[2019-06-13] MEDS: ENOXAPARIN 40 MG/0.4 ML SYRINGE (J1650) SC SCH (09:38)
[2019-06-13] MEDS: POTASSIUM CHLORIDE 10 MEQ SR TABLET PO SCH (09:41)
[2019-06-13] MEDS: PANTOPRAZOLE 40MG TAB (PROTONIX) PO SCH (09:41)
--- NOTE | 2019-06-13 13:40 | IPNPDOC ---
Text Note Date of Service The patient was seen on 06/13/19. NOTE SUBJECTIVE: Ms. Jaramillo is again seen with physical therapy. She was admitted to ARU after an acute right CVA causing left-sided deficits. She continues to make remarkable progress with improving her mobility and balance. Also, during this visit the patient was shown her CT images of her brain showing her stroke. OBJECTIVE: Please see vital signs below Physical exam: HEENT: Neck is supple, she does not exhibit adenopathy or thyromegaly, she does not have scleral injection or icterus, she does not have facial droop. Cardiovascular: Regular rate and rhythm with a normal S1 and S2. Respiratory: Clear to auscultation. Abdomen: Soft, nontender, nondistended. Extremities: No peripheral edema or lesions, patient wears an AFO to her left lower extremity. Neuro: Patient is right-hand dominant, she has dense plegia to her left upper extremity, she has mildly ataxic gait that corrects with quad cane. She has very good at activity endurance. ASSESSMENT/PLAN: 69-year-old female with right CVA with left-sided plegia involving both the upper and lower extremity. She is making remarkable improvement in therapy and has regained ambulation with quad cane. Anticipate that she will continue to improve and be able to [place] Patient does have underlying history of hypertension. To reduce her risk of recurrent stroke patient is on baby aspirin, antihypertensive and antilipid agent. VS,Fishbone, I+O VS, Fishbone, I+O Laboratory Tests 06/13/19 06:02 Vital Signs Date Time Temp Pulse Resp B/P (MAP) Pulse Ox O2 Delivery O2 Flow Rate FiO2 06/13/19 09:38 89 138/80 06/13/19 06:00 100.0 18 94 Room Air I&O- Last 24 Hours up to 6 AM 06/13/19 06:00 Intake Total 1320 ml Output Total 200 ml Balance 1120 ml ARCENIO FELDER MD Jun 13, 2019 13:40
[2019-06-13 14:00] VITALS: BP 145/78
[2019-06-13 21:01] VITALS: BP 122/80
[2019-06-13] MEDS: SENNA 8.6 MG TAB (SENOKOT) PO SCH (22:14)
[2019-06-14 06:00] VITALS: BP 141/84
[2019-06-14] MEDS: ATORVASTATIN 20 MG TAB PO SCH (08:00)
[2019-06-14] MEDS: ASPIRIN 81 MG CHEW TABLET PO SCH (08:00)
[2019-06-14] MEDS: amLODIPine 5 MG TAB PO SCH ×2 (08:00→20:37)
[2019-06-14] MEDS: CLOPIDOGREL 75 MG TAB PO SCH (08:00)
[2019-06-14] MEDS: LORATADINE 10 MG TAB PO SCH (08:00)
[2019-06-14] MEDS: BACLOFEN 5MG PER 1/2 TABLET PO SCH ×2 (08:00→20:36)
[2019-06-14] MEDS: PANTOPRAZOLE 40MG TAB (PROTONIX) PO SCH (08:00)
[2019-06-14] MEDS: DOCUSATE SODIUM 100 MG CAP PO SCH ×2 (08:01→20:37)
[2019-06-14] MEDS: ENOXAPARIN 40 MG/0.4 ML SYRINGE (J1650) SC SCH (08:01)
[2019-06-14] MEDS: POTASSIUM CHLORIDE 10 MEQ SR TABLET PO SCH (08:01)
[2019-06-14 14:00] VITALS: BP 133/73
--- NOTE | 2019-06-14 17:55 | IPNPDOC ---
Text Note Date of Service The patient was seen on 06/14/19. NOTE SUBJECTIVE: No any acute events overnight. She was admitted to ARU after an acute right CVA causing left-sided deficits. Patient denies fever, chills, nausea, vomiting, diarrhea or dysuria OBJECTIVE: Please see vital signs below Physical exam: HEENT: Neck is supple, she does not exhibit adenopathy or thyromegaly, she does not have scleral injection or icterus, she does not have facial droop. Cardiovascular: Regular rate and rhythm with a normal S1 and S2. Respiratory: Clear to auscultation. Abdomen: Soft, nontender, nondistended. Extremities: No peripheral edema or lesions, patient wears an AFO to her left lower extremity. Neuro: Patient is right-hand dominant, she has dense plegia to her left upper extremity, she has mildly ataxic gait that corrects with quad cane. She has very good at activity endurance. ASSESSMENT/PLAN: 69-year-old female with right CVA with left-sided plegia involving both the upper and lower extremity. She is making remarkable improvement in therapy and has regained ambulation with quad cane. Patient does have underlying history of hypertension. To reduce her risk of recurrent stroke patient is on baby aspirin, antihypertensive and antilipid agent. Continue current cardioprotective therapy VS,Fishbone, I+O VS, Fishbone, I+O Vital Signs Date Time Temp Pulse Resp B/P (MAP) Pulse Ox O2 Delivery O2 Flow Rate FiO2 06/14/19 14:00 98.8 91 16 133/73 (93) 97 Room Air I&O- Last 24 Hours up to 6 AM 06/14/19 06:00 Intake Total 1080 ml Output Total 0 ml Balance 1080 ml JADA DELA CRUZ DO Jun 14, 2019 17:55
[2019-06-14 20:00] VITALS: BP 144/83
[2019-06-14] MEDS: SENNA 8.6 MG TAB (SENOKOT) PO SCH (20:37)
[2019-06-15 06:00] VITALS: BP 144/71
[2019-06-15] MEDS: ENOXAPARIN 40 MG/0.4 ML SYRINGE (J1650) SC SCH (08:27)
[2019-06-15] MEDS: CLOPIDOGREL 75 MG TAB PO SCH (08:27)
[2019-06-15] MEDS: PANTOPRAZOLE 40MG TAB (PROTONIX) PO SCH (08:28)
[2019-06-15] MEDS: amLODIPine 5 MG TAB PO SCH ×2 (08:28→21:43)
[2019-06-15] MEDS: BACLOFEN 5MG PER 1/2 TABLET PO SCH ×2 (08:28→21:43)
[2019-06-15] MEDS: ASPIRIN 81 MG CHEW TABLET PO SCH (08:28)
[2019-06-15] MEDS: LORATADINE 10 MG TAB PO SCH (08:28)
[2019-06-15] MEDS: ATORVASTATIN 20 MG TAB PO SCH (08:28)
[2019-06-15] MEDS: POTASSIUM CHLORIDE 10 MEQ SR TABLET PO SCH (08:28)
[2019-06-15] MEDS: DOCUSATE SODIUM 100 MG CAP PO SCH ×3 (08:28→21:00)
--- NOTE | 2019-06-15 13:21 | IPNPDOC ---
PM&R Progress Note DATE OF SERVICE: Jun 15, 2019 Mortgage Analyst Progress Note Subjective: Patient reporting her increased urination has resolved and she feels her left arm is loosening up with that start of baclofen and E-stim in therapy. REVIEW OF SYSTEMS: The following is a completed review of systems and has been reviewed. Review of systems otherwise unremarkable. PAIN: Patient self reports no pain EYES: No recent vision changes EARS, NOSE, & THROAT: No throat pain, or dysphagia, or rhinorrhea CARDIOVASCULAR: Denies chest pain or palpitations PULMONARY: Denies shortness of breath GASTROINTESTINAL: Denies constipation/diarrhea GENITOURINARY:increased frequency and urge MUSCULOSKELETAL: left sided weakness NEUROLOGICAL:+hemiplegia with stroke HEMATOLOGICAL: denies easy bruising SKIN: left hand rash PSYCHIATRIC: Unremarkable All other review of systems found to be negative. PHYSICAL EXAMINATION: VITAL SIGNS: Please see below. GENERAL: Pleasant and cooperative. No acute distress. HEENT: PERRL. Extraocular movements intact. Clear conjunctiva CARDIOVASCULAR: Regular rate and rhythm. No murmurs, rubs, or gallops LUNGS: Clear to auscultation bilaterally. No wheezes. No rhonchi ABDOMEN: Soft, nontender, nondistended. Positive bowel sounds. Normal active bowel sounds NEUROLOGICAL: Alert and oriented times three. Cranial nerves II through XII grossly intact except left facial droop. Sensation grossly intact to light touch all 4 limbs Left elbow flexor tone 1/4, elbow extensors 1/4, wrist flexors 1/4, finger flexors 1/4 MAS +clonus LLE EXTREMITIES: 5\5 strength right upper extremities. LUE 1/5 arm abduction, elbow flexion/extension, 0/5 wrist extension, 1/5 clinical analyst 5\5 strength right lower extremity. 4/5 strength in left hip flexion/knee extension, 0/5 ankle DF/EHL, 2/5 ankle PF ASSESSMENT:69-year-old F with past medical history of HTN who presents status post right mast radiata infarct PLAN: 1. 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 Neuro: s/p right mast radiata infarct with significant left sided paresis and spasticity, c/u ASA, plavix and statin for secondary stroke prevention -c/u baclofen for tone -will need neuro follow-up in the [place] 3. cardiac: Htn c/u amlodipine- medicine consulted to assist in management -HLD c/u statin 4. resp: encourage incentive spirometry 5. : monitor PVRs, denies dysuria 6. DVT ppx: lovenox, ambulating well 7. GI ppx: protonix 8. Skin: left dorsal hand peeling, apply lotion BID 9. Dispo: TBD Allergies Coded Allergies: SEASONAL ALLERGIES (Verified Allergy, Unknown, 05/14/19) lactose (Verified Allergy, Unknown, 05/14/19) Vital Signs Vital Signs Date Time Temp Pulse Resp B/P (MAP) Pulse Ox O2 Delivery O2 Flow Rate FiO2 06/15/19 08:28 81 144/71 06/15/19 06:00 98.4 18 94 Room Air Current Medications Current Medications Current Medications Medications (Trade) Dose Ordered Sig/Shanna Route PRN Reason Start Time Stop Time Status Last Admin Dose Admin Acetaminophen (Tylenol Tab) 650 mg Q4HP PRN PO MILD PAIN (PS 1-4) 06/10/19 18:15 Amlodipine Besylate (Norvasc) 5 mg BID PO 06/10/19 21:00 06/15/19 08:28 Aspirin (Aspirin Chewable) 81 mg DAILY PO 06/11/19 09:00 06/15/19 08:28 Atorvastatin Calcium (Lipitor) 20 mg DAILY PO 06/11/19 09:00 06/15/19 08:28 Baclofen (Lioresal) 5 mg BID PO 06/11/19 09:00 06/15/19 08:28 Clopidogrel Bisulfate (PLAVix) 75 mg DAILY PO 06/11/19 09:00 06/15/19 08:27 Diphenhydramine HCl (Benadryl) 25 mg Q6HP PRN PO ITCHING 06/10/19 18:15 Docusate Sodium (Colace) 100 mg BID PO 06/10/19 21:00 06/11/19 09:21 Enoxaparin Sodium (Lovenox) 40 mg DAILY SC 06/11/19 09:00 06/15/19 08:27 Fluoxetine HCl (PROzac) 20 mg QHS PO 06/10/19 21:00 06/10/19 18:34 DC Loratadine (Claritin) 10 mg DAILY PO 06/11/19 09:00 06/15/19 08:28 Magnesium Hydroxide (Milk Of Magnesia) 30 ml DAILYPRN PRN PO CONSTIPATION 06/10/19 18:15 Pantoprazole Sodium (Protonix) 40 mg DAILY PO 06/11/19 09:00 06/15/19 08:28 Potassium Chloride (Micro-K Extencaps) 20 meq DAILY PO 06/11/19 09:00 06/15/19 08:28 Senna (Senokot) 1 tab QHS PO 06/10/19 21:00 MIKI MIDDLETON MD Jun 15, 2019 13:21
[2019-06-15 13:31] LABS: BASO % 0.5 % (0.0-1.0); EOS # 0.1 10^3/uL (0.0-0.5); EOS % 2.1 % (0.0-3.0); HEMATOCRIT 40.2 % (36.0-47.0); HEMOGLOBIN 13.2 g/dl (12.0-15.5); LYMPH # 1.3 10^3/uL (1.5-5.0); LYMPH % 23.2 % (24.0-44.0); MEAN CORPUSCULAR HEMOGLOBIN 29.9 pg (27.0-33.0); MEAN CORPUSCULAR HGB CONC 32.8 g/dl (32.0-36.5); MEAN CORPUSCULAR VOLUME 91.2 fl (80.0-96.0); MONO # 0.4 10^3/uL (0.0-0.8); MONO % 6.5 % (0.0-5.0); NEUTROPHILS # 3.8 10^3/uL (1.5-8.5); NEUTROPHILS % 67.3 % (36.0-66.0); PLATELET COUNT, AUTOMATED 364 10^3/uL (150-450); RED BLOOD COUNT 4.41 10^6/uL (4.00-5.40); WHITE BLOOD COUNT 5.7 10^3/uL (4.0-10.0)
[2019-06-15 13:59] LABS: BLOOD UREA NITROGEN 15 MG/DL (7-18); CALCIUM LEVEL 9.7 MG/DL (8.8-10.2); CARBON DIOXIDE LEVEL 29 MEQ/L (21-32); CHLORIDE LEVEL 103 MEQ/L (98-107); CREATININE FOR GFR 0.75 MG/DL (0.55-1.30); GLOMERULAR FILTRATION RATE > 60.0 (>39); GLUCOSE, FASTING 109 MG/DL (70-100); POTASSIUM SERUM 3.7 MEQ/L (3.5-5.1); SODIUM LEVEL 142 MEQ/L (136-145)
[2019-06-15 14:00] VITALS: BP_SYST 140; BP_SYST 144; BP_DIAS 71; BP_DIAS 78
[2019-06-15 20:00] VITALS: BP 143/82
[2019-06-15] MEDS: SENNA 8.6 MG TAB (SENOKOT) PO SCH (21:00)
[2019-06-16 06:00] VITALS: BP 136/73
[2019-06-16 06:50] LABS: HEMATOCRIT 37.3 % (36.0-47.0); HEMOGLOBIN 11.8 g/dl (12.0-15.5); MEAN CORPUSCULAR HEMOGLOBIN 29.4 pg (27.0-33.0); MEAN CORPUSCULAR HGB CONC 31.6 g/dl (32.0-36.5); MEAN CORPUSCULAR VOLUME 92.8 fl (80.0-96.0); PLATELET COUNT, AUTOMATED 317 10^3/uL (150-450); RED BLOOD COUNT 4.02 10^6/uL (4.00-5.40); WHITE BLOOD COUNT 4.9 10^3/uL (4.0-10.0)
[2019-06-16] MEDS: ASPIRIN 81 MG CHEW TABLET PO SCH (08:31)
[2019-06-16] MEDS: POTASSIUM CHLORIDE 10 MEQ SR TABLET PO SCH (08:31)
[2019-06-16] MEDS: amLODIPine 5 MG TAB PO SCH ×2 (08:31→20:46)
[2019-06-16] MEDS: CLOPIDOGREL 75 MG TAB PO SCH (08:31)
[2019-06-16] MEDS: PANTOPRAZOLE 40MG TAB (PROTONIX) PO SCH (08:32)
[2019-06-16] MEDS: BACLOFEN 5MG PER 1/2 TABLET PO SCH ×2 (08:32→20:46)
[2019-06-16] MEDS: LORATADINE 10 MG TAB PO SCH (08:32)
[2019-06-16] MEDS: DOCUSATE SODIUM 100 MG CAP PO SCH ×2 (08:32→20:48)
[2019-06-16] MEDS: ATORVASTATIN 20 MG TAB PO SCH (08:32)
[2019-06-16] MEDS: ENOXAPARIN 40 MG/0.4 ML SYRINGE (J1650) SC SCH (08:33)
[2019-06-16 15:43] VITALS: BP 127/81
[2019-06-16 20:00] VITALS: BP 140/89
[2019-06-16] MEDS: SENNA 8.6 MG TAB (SENOKOT) PO SCH (20:48)
[2019-06-17] MEDS: DOCUSATE SODIUM 100 MG CAP PO SCH ×3 (09:00→20:50)
[2019-06-17] MEDS: BACLOFEN 5MG PER 1/2 TABLET PO SCH ×2 (10:40→20:49)
[2019-06-17] MEDS: ATORVASTATIN 20 MG TAB PO SCH (10:40)
[2019-06-17] MEDS: LORATADINE 10 MG TAB PO SCH (10:40)
[2019-06-17] MEDS: PANTOPRAZOLE 40MG TAB (PROTONIX) PO SCH (10:41)
[2019-06-17] MEDS: POTASSIUM CHLORIDE 10 MEQ SR TABLET PO SCH (10:41)
[2019-06-17] MEDS: CLOPIDOGREL 75 MG TAB PO SCH (10:41)
[2019-06-17] MEDS: ASPIRIN 81 MG CHEW TABLET PO SCH (10:41)
[2019-06-17] MEDS: amLODIPine 5 MG TAB PO SCH ×2 (10:41→20:49)
[2019-06-17] MEDS: ENOXAPARIN 40 MG/0.4 ML SYRINGE (J1650) SC SCH (10:42)
[2019-06-17 14:45] VITALS: BP 123/85
--- NOTE | 2019-06-17 19:41 | IPNPDOC ---
PM&R Progress Note DATE OF SERVICE: Jun 16, 2019 Plastic Finisher Progress Note Subjective: Patient reporting she feels safe walking and that she believes she is progressing overall. REVIEW OF SYSTEMS: The following is a completed review of systems and has been reviewed. Review of systems otherwise unremarkable. PAIN: Patient self reports no pain EYES: No recent vision changes EARS, NOSE, & THROAT: No throat pain, or dysphagia, or rhinorrhea CARDIOVASCULAR: Denies chest pain or palpitations PULMONARY: Denies shortness of breath GASTROINTESTINAL: Denies constipation/diarrhea GENITOURINARY:increased frequency and urge MUSCULOSKELETAL: left sided weakness NEUROLOGICAL:+hemiplegia with stroke HEMATOLOGICAL: denies easy bruising SKIN: left hand rash PSYCHIATRIC: Unremarkable All other review of systems found to be negative. PHYSICAL EXAMINATION: VITAL SIGNS: Please see below. GENERAL: Pleasant and cooperative. No acute distress. HEENT: PERRL. Extraocular movements intact. Clear conjunctiva CARDIOVASCULAR: Regular rate and rhythm. No murmurs, rubs, or gallops LUNGS: Clear to auscultation bilaterally. No wheezes. No rhonchi ABDOMEN: Soft, nontender, nondistended. Positive bowel sounds. Normal active bowel sounds NEUROLOGICAL: Alert and oriented times three. Cranial nerves II through XII grossly intact except left facial droop. Sensation grossly intact to light touch all 4 limbs Left elbow flexor tone 1/4, elbow extensors 1/4, wrist flexors 1/4, finger flexors 1/4 MAS +clonus LLE EXTREMITIES: 5\5 strength right upper extremities. LUE 1/5 arm abduction, elbow flexion/extension, 0/5 wrist extension, 1/5 elementary classroom teacher 5\5 strength right lower extremity. 4/5 strength in left hip flexion/knee extension, 0/5 ankle DF/EHL, 2/ 5 ankle PF ASSESSMENT:69-year-old F with past medical history of HTN who presents status post right mast radiata infarct PLAN: 1. 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 Neuro: s/p right mast radiata infarct with significant left sided paresis and spasticity, c/u ASA, plavix and statin for secondary stroke prevention -c/u baclofen for tone -will need neuro follow-up in the [place] 3. cardiac: Htn c/u amlodipine- medicine consulted to assist in management -HLD c/u statin 4. resp: encourage incentive spirometry 5. : monitor PVRs, denies dysuria 6. DVT ppx: lovenox, ambulating well 7. GI ppx: protonix 8. Skin: left dorsal hand peeling, apply lotion BID 9. Dispo: TBD Allergies Coded Allergies: SEASONAL ALLERGIES (Verified Allergy, Unknown, 05/14/19) lactose (Verified Allergy, Unknown, 05/14/19) Vital Signs Vital Signs Date Time Temp Pulse Resp B/P (MAP) Pulse Ox O2 Delivery O2 Flow Rate FiO2 06/17/19 14:45 97.8 86 18 123/85 (98) 96 Room Air Current Medications Current Medications Current Medications Medications (Trade) Dose Ordered Sig/Shanna Route PRN Reason Start Time Stop Time Status Last Admin Dose Admin Acetaminophen (Tylenol Tab) 650 mg Q4HP PRN PO MILD PAIN (PS 1-4) 06/10/19 18:15 Amlodipine Besylate (Norvasc) 5 mg BID PO 06/10/19 21:00 06/17/19 10:41 Aspirin (Aspirin Chewable) 81 mg DAILY PO 06/11/19 09:00 06/17/19 10:41 Atorvastatin Calcium (Lipitor) 20 mg DAILY PO 06/11/19 09:00 06/17/19 10:40 Baclofen (Lioresal) 5 mg BID PO 06/11/19 09:00 06/17/19 10:40 Clopidogrel Bisulfate (PLAVix) 75 mg DAILY PO 06/11/19 09:00 06/17/19 10:41 Diphenhydramine HCl (Benadryl) 25 mg Q6HP PRN PO ITCHING 06/10/19 18:15 Docusate Sodium (Colace) 100 mg BID PO 06/10/19 21:00 06/11/19 09:21 Enoxaparin Sodium (Lovenox) 40 mg DAILY SC 06/11/19 09:00 06/17/19 10:42 Fluoxetine HCl (PROzac) 20 mg QHS PO 06/10/19 21:00 06/10/19 18:34 DC Loratadine (Claritin) 10 mg DAILY PO 06/11/19 09:00 06/17/19 10:40 Magnesium Hydroxide (Milk Of Magnesia) 30 ml DAILYPRN PRN PO CONSTIPATION 06/10/19 18:15 Pantoprazole Sodium (Protonix) 40 mg DAILY PO 06/11/19 09:00 06/17/19 10:41 Potassium Chloride (Micro-K Extencaps) 20 meq DAILY PO 06/11/19 09:00 06/17/19 10:41 Senna (Senokot) 1 tab QHS PO 06/10/19 21:00 MIKI MIDDLETON MD Jun 17, 2019 19:41
--- NOTE | 2019-06-17 19:44 | IPNPDOC ---
PM&R Progress Note DATE OF SERVICE: Jun 17, 2019 Cloth Grader Progress Note Subjective: Patient reporting she feels ok after falling in OT. She denies dizziness, headache, or changes in her strength. She would like to follow-up at [facility] in the [place] for her primary care. REVIEW OF SYSTEMS: The following is a completed review of systems and has been reviewed. Review of systems otherwise unremarkable. PAIN: Patient self reports no pain EYES: No recent vision changes EARS, NOSE, & THROAT: No throat pain, or dysphagia, or rhinorrhea CARDIOVASCULAR: Denies chest pain or palpitations PULMONARY: Denies shortness of breath GASTROINTESTINAL: Denies constipation/diarrhea GENITOURINARY:increased frequency and urge MUSCULOSKELETAL: left sided weakness NEUROLOGICAL:+hemiplegia with stroke HEMATOLOGICAL: denies easy bruising SKIN: left hand rash PSYCHIATRIC: Unremarkable All other review of systems found to be negative. PHYSICAL EXAMINATION: VITAL SIGNS: Please see below. GENERAL: Pleasant and cooperative. No acute distress. HEENT: PERRL. Extraocular movements intact. Clear conjunctiva CARDIOVASCULAR: Regular rate and rhythm. No murmurs, rubs, or gallops LUNGS: Clear to auscultation bilaterally. No wheezes. No rhonchi ABDOMEN: Soft, nontender, nondistended. Positive bowel sounds. Normal active bowel sounds NEUROLOGICAL: Alert and oriented times three. Cranial nerves II through XII grossly intact except left facial droop. Sensation grossly intact to light touch all 4 limbs Left elbow flexor tone 1/4, elbow extensors 1/4, wrist flexors 1/4, finger flexors 1/4 MAS +clonus LLE EXTREMITIES: 5\5 strength right upper extremities. LUE 1/5 arm abduction, elbow flexion/extension, 0/5 wrist extension, 1/5 breaker up machine operator 5\5 strength right lower extremity. 4/5 strength in left hip flexion/knee extension, 0/5 ankle DF/EHL, 2/5 ankle PF ASSESSMENT:69-year-old F with past medical history of HTN who presents status post right mast radiata infarct PLAN: 1. 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 cardiac: Htn c/u amlodipine- medicine consulted to assist in management -HLD c/u statin 4. resp: encourage incentive spirometry 5. : monitor PVRs, denies dysuria 6. DVT ppx: lovenox, ambulating well 7. GI ppx: protonix 8. Skin: left dorsal hand peeling, apply lotion BID 9. Dispo: 06-22-19 to home, pending son coming for training and pick-up Allergies Coded Allergies: SEASONAL ALLERGIES (Verified Allergy, Unknown, 05/14/19) lactose (Verified Allergy, Unknown, 05/14/19) Vital Signs Vital Signs Date Time Temp Pulse Resp B/P (MAP) Pulse Ox O2 Delivery O2 Flow Rate FiO2 06/17/19 14:45 97.8 86 18 123/85 (98) 96 Room Air Current Medications Current Medications Current Medications Medications (Trade) Dose Ordered Sig/Shanna Route PRN Reason Start Time Stop Time Status Last Admin Dose Admin Acetaminophen (Tylenol Tab) 650 mg Q4HP PRN PO MILD PAIN (PS 1-4) 06/10/19 18:15 Amlodipine Besylate (Norvasc) 5 mg BID PO 06/10/19 21:00 06/17/19 10:41 Aspirin (Aspirin Chewable) 81 mg DAILY PO 06/11/19 09:00 06/17/19 10:41 Atorvastatin Calcium (Lipitor) 20 mg DAILY PO 06/11/19 09:00 06/17/19 10:40 Baclofen (Lioresal) 5 mg BID PO 06/11/19 09:00 06/17/19 10:40 Clopidogrel Bisulfate (PLAVix) 75 mg DAILY PO 06/11/19 09:00 06/17/19 10:41 Diphenhydramine HCl (Benadryl) 25 mg Q6HP PRN PO ITCHING 06/10/19 18:15 Docusate Sodium (Colace) 100 mg BID PO 06/10/19 21:00 06/11/19 09:21 Enoxaparin Sodium (Lovenox) 40 mg DAILY SC 06/11/19 09:00 06/17/19 10:42 Fluoxetine HCl (PROzac) 20 mg QHS PO 06/10/19 21:00 06/10/19 18:34 DC Loratadine (Claritin) 10 mg DAILY PO 06/11/19 09:00 06/17/19 10:40 Magnesium Hydroxide (Milk Of Magnesia) 30 ml DAILYPRN PRN PO CONSTIPATION 06/10/19 18:15 Pantoprazole Sodium (Protonix) 40 mg DAILY PO 06/11/19 09:00 06/17/19 10:41 Potassium Chloride (Micro-K Extencaps) 20 meq DAILY PO 06/11/19 09:00 06/17/19 10:41 Senna (Senokot) 1 tab QHS PO 06/10/19 21:00 MIKI MIDDLETON MD Jun 17, 2019 19:43
[2019-06-17 20:20] VITALS: BP 154/81
[2019-06-17] MEDS: SENNA 8.6 MG TAB (SENOKOT) PO SCH (20:50)
[2019-06-18 06:15] VITALS: BP 140/90
[2019-06-18] MEDS: DOCUSATE SODIUM 100 MG CAP PO SCH ×2 (09:00→21:00)
[2019-06-18] MEDS: ATORVASTATIN 20 MG TAB PO SCH (09:29)
[2019-06-18] MEDS: ENOXAPARIN 40 MG/0.4 ML SYRINGE (J1650) SC SCH (09:29)
[2019-06-18] MEDS: BACLOFEN 5MG PER 1/2 TABLET PO SCH ×2 (09:29→22:07)
[2019-06-18] MEDS: CLOPIDOGREL 75 MG TAB PO SCH (09:29)
[2019-06-18] MEDS: ASPIRIN 81 MG CHEW TABLET PO SCH (09:29)
[2019-06-18] MEDS: PANTOPRAZOLE 40MG TAB (PROTONIX) PO SCH (09:29)
[2019-06-18] MEDS: LORATADINE 10 MG TAB PO SCH (09:29)
[2019-06-18] MEDS: amLODIPine 5 MG TAB PO SCH ×2 (09:30→22:07)
[2019-06-18] MEDS: POTASSIUM CHLORIDE 10 MEQ SR TABLET PO SCH (09:30)
--- NOTE | 2019-06-18 13:28 | IPNPDOC ---
PM&R Progress Note DATE OF SERVICE: Jun 18, 2019 Time Study Clerk Progress Note Subjective: Patient seen walking in therapy with a quad cane stating she feels well and has no complaints. REVIEW OF SYSTEMS: The following is a completed review of systems and has been reviewed. Review of systems otherwise unremarkable. PAIN: Patient self reports no pain EYES: No recent vision changes EARS, NOSE, & THROAT: No throat pain, or dysphagia, or rhinorrhea CARDIOVASCULAR: Denies chest pain or palpitations PULMONARY: Denies shortness of breath GASTROINTESTINAL: Denies constipation/diarrhea GENITOURINARY:increased frequency and urge MUSCULOSKELETAL: left sided weakness NEUROLOGICAL:+hemiplegia with stroke HEMATOLOGICAL: denies easy bruising SKIN: left hand rash PSYCHIATRIC: Unremarkable All other review of systems found to be negative. PHYSICAL EXAMINATION: VITAL SIGNS: Please see below. GENERAL: Pleasant and cooperative. No acute distress. HEENT: PERRL. Extraocular movements intact. Clear conjunctiva CARDIOVASCULAR: Regular rate and rhythm. No murmurs, rubs, or gallops LUNGS: Clear to auscultation bilaterally. No wheezes. No rhonchi ABDOMEN: Soft, nontender, nondistended. Positive bowel sounds. Normal active bowel sounds NEUROLOGICAL: Alert and oriented times three. Cranial nerves II through XII grossly intact except left facial droop. Sensation grossly intact to light touch all 4 limbs Left elbow flexor tone 1/4, elbow extensors 1/4, wrist flexors 1/4, finger flexo rs 1/4 MAS +clonus LLE EXTREMITIES: 5\5 strength right upper extremities. LUE 1/5 arm abduction, elbow flexion/extension, 0/5 wrist extension, 1/5 unemployment insurance director 5\5 strength right lower extremity. 4/5 strength in left hip flexion/knee extension, 0/5 ankle DF/EHL, 2/5 ankle PF ASSESSMENT:69-year-old F with past medical history of HTN who presents status post right mast radiata infarct PLAN: 1. 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 cardiac: Htn c/u amlodipine- medicine consulted to assist in management -HLD c/u statin 4. resp: encourage incentive spirometry 5. : monitor PVRs, denies dysuria 6. DVT ppx: lovenox, ambulating well 7. GI ppx: protonix 8. Skin: left dorsal hand peeling, apply lotion BID 9. Dispo: 06-22-19 to home, pending son coming for training and pick-up Allergies Coded Allergies: SEASONAL ALLERGIES (Verified Allergy, Unknown, 05/14/19) lactose (Verified Allergy, Unknown, 05/14/19) Vital Signs Vital Signs Date Time Temp Pulse Resp B/P (MAP) Pulse Ox O2 Delivery O2 Flow Rate FiO2 06/18/19 09:30 98 132/89 06/18/19 06:15 97.9 18 95 Room Air Current Medications Current Medications Current Medications Medications (Trade) Dose Ordered Sig/Shanna Route PRN Reason Start Time Stop Time Status Last Admin Dose Admin Acetaminophen (Tylenol Tab) 650 mg Q4HP PRN PO MILD PAIN (PS 1-4) 06/10/19 18:15 Amlodipine Besylate (Norvasc) 5 mg BID PO 06/10/19 21:00 06/18/19 09:30 Aspirin (Aspirin Chewable) 81 mg DAILY PO 06/11/19 09:00 06/18/19 09:29 Atorvastatin Calcium (Lipitor) 20 mg DAILY PO 06/11/19 09:00 06/18/19 09:29 Baclofen (Lioresal) 5 mg BID PO 06/11/19 09:00 06/18/19 09:29 Clopidogrel Bisulfate (PLAVix) 75 mg DAILY PO 06/11/19 09:00 06/18/19 09:29 Diphenhydramine HCl (Benadryl) 25 mg Q6HP PRN PO ITCHING 06/10/19 18:15 Docusate Sodium (Colace) 100 mg BID PO 06/10/19 21:00 06/11/19 09:21 Enoxaparin Sodium (Lovenox) 40 mg DAILY SC 06/11/19 09:00 06/18/19 09:29 Fluoxetine HCl (PROzac) 20 mg QHS PO 06/10/19 21:00 06/10/19 18:34 DC Loratadine (Claritin) 10 mg DAILY PO 06/11/19 09:00 06/18/19 09:29 Magnesium Hydroxide (Milk Of Magnesia) 30 ml DAILYPRN PRN PO CONSTIPATION 06/10/19 18:15 Pantoprazole Sodium (Protonix) 40 mg DAILY PO 06/11/19 09:00 06/18/19 09:29 Potassium Chloride (Micro-K Extencaps) 20 meq DAILY PO 06/11/19 09:00 06/18/19 09:30 Senna (Senokot) 1 tab QHS PO 06/10/19 21:00 MIKI MIDDLETON MD Jun 18, 2019 13:28
[2019-06-18 14:00] VITALS: BP 130/73
--- NOTE | 2019-06-18 16:23 | IPNPDOC ---
Subjective Date Seen The patient was seen on 06/18/19. Subjective Chief Complaint/HPI Patient is being seen today being assessed for any medical comorbidities. Patient reported she is doing, "Great!" and feels she is improving everyday. She denied any medical issues at this time. Patient has asked when her Lovenox will be discontinued. General: Denies: Chills, Night Sweats Constitutional: Denies: Chills Eyes: Denies: Pain ENT: Denies: Head Aches Skin: Denies: Rash Pulmonary: Denies: Dyspnea, Cough Cardiovascular: Denies: Chest Pain, Palpitations Gastrointestinal: Denies: Abdominal Pain Genitourinary: Denies: Dysuria Musculoskeletal: Denies: Neck Pain, Back Pain, Shoulder Pain, Arm Pain, Hand Pain, Leg Pain, Foot Pain, Joint Pain, Muscle Pain, Spasms, Other Symptoms Neurological: Reports: Weakness (L sided weakness ) Psych: Reports: Mood Normal Objective Physical Examination General Exam: Positive: Alert, Cooperative, No Acute Distress Eye Exam: Positive: Conjunctiva & lids normal ENT Exam: Positive: Atraumatic, Mucous membr. moist/pink Neck Exam: Positive: Supple Chest Exam: Positive: Clear to auscultation, Normal air movement Heart Exam: Positive: Rate Normal, Normal S1, Normal S2 Abdomen Exam: Positive: Normal bowel sounds Extremity Exam: Positive: Other (L sided hemiparesis ); Negative: Edema Skin Exam: Negative: Nl turgor and temperature Neuro Exam: Positive: Normal Speech Psych Exam: Positive: Mental status NL, Mood NL Assessment /Plan Plan/VTE VTE Prophylaxis Ordered?: Yes (Patient on Plavix regimen. Lovenox to be discontinued.) Plan Diet: Continue Current Activity: Continue Current Therapy: PT Patient will continue to be managed per Acute Rehab. Discussed with Dr. Lebron; Lovenox may be discontinued at this time as discussed with Ms. Jaramillo. VS, I&O, 24H, Fishbone Vital Signs/I&O Vital Signs Date Time Temp Pulse Resp B/P (MAP) Pulse Ox O2 Delivery O2 Flow Rate FiO2 06/18/19 14:00 99.3 100 18 130/73 (92) 95 Room Air I&O- Last 24 Hours up to 6 AM 06/18/19 06:00 Intake Total 940 ml Output Total 0 ml Balance 940 ml JESSICA BROWNE PA-C Jun 18, 2019 16:23
[2019-06-18 20:06] VITALS: BP 148/95
[2019-06-18] MEDS: SENNA 8.6 MG TAB (SENOKOT) PO SCH (21:00)
[2019-06-19 06:00] VITALS: BP 130/70
[2019-06-19 07:04] LABS: HEMATOCRIT 35.4 % (36.0-47.0); HEMOGLOBIN 11.6 g/dl (12.0-15.5); MEAN CORPUSCULAR HEMOGLOBIN 29.6 pg (27.0-33.0); MEAN CORPUSCULAR HGB CONC 32.8 g/dl (32.0-36.5); MEAN CORPUSCULAR VOLUME 90.3 fl (80.0-96.0); PLATELET COUNT, AUTOMATED 322 10^3/uL (150-450); RED BLOOD COUNT 3.92 10^6/uL (4.00-5.40); WHITE BLOOD COUNT 5.7 10^3/uL (4.0-10.0)
[2019-06-19] MEDS: DOCUSATE SODIUM 100 MG CAP PO SCH ×3 (09:00→20:54)
[2019-06-19] MEDS: LORATADINE 10 MG TAB PO SCH (09:20)
[2019-06-19] MEDS: amLODIPine 5 MG TAB PO SCH ×2 (09:20→20:54)
[2019-06-19] MEDS: ASPIRIN 81 MG CHEW TABLET PO SCH (09:21)
[2019-06-19] MEDS: ATORVASTATIN 20 MG TAB PO SCH (09:21)
[2019-06-19] MEDS: BACLOFEN 5MG PER 1/2 TABLET PO SCH ×2 (09:21→20:53)
[2019-06-19] MEDS: CLOPIDOGREL 75 MG TAB PO SCH (09:21)
[2019-06-19] MEDS: POTASSIUM CHLORIDE 10 MEQ SR TABLET PO SCH (09:21)
[2019-06-19] MEDS: PANTOPRAZOLE 40MG TAB (PROTONIX) PO SCH (09:21)
[2019-06-19 14:00] VITALS: BP 133/78
[2019-06-19 20:00] VITALS: BP 138/54
[2019-06-19] MEDS: SENNA 8.6 MG TAB (SENOKOT) PO SCH (20:54)
[2019-06-20 06:00] VITALS: BP 142/66
[2019-06-20] MEDS: DOCUSATE SODIUM 100 MG CAP PO SCH ×3 (09:00→21:00)
[2019-06-20] MEDS: ASPIRIN 81 MG CHEW TABLET PO SCH (09:22)
[2019-06-20] MEDS: BACLOFEN 5MG PER 1/2 TABLET PO SCH ×2 (09:22→21:08)
[2019-06-20] MEDS: PANTOPRAZOLE 40MG TAB (PROTONIX) PO SCH (09:22)
[2019-06-20] MEDS: LORATADINE 10 MG TAB PO SCH (09:22)
[2019-06-20] MEDS: CLOPIDOGREL 75 MG TAB PO SCH (09:22)
[2019-06-20] MEDS: ATORVASTATIN 20 MG TAB PO SCH (09:22)
[2019-06-20] MEDS: POTASSIUM CHLORIDE 10 MEQ SR TABLET PO SCH (09:23)
[2019-06-20] MEDS: amLODIPine 5 MG TAB PO SCH ×2 (09:23→21:08)
[2019-06-20 14:00] VITALS: BP 132/73
--- NOTE | 2019-06-20 16:45 | IPNPDOC ---
Text Note Date of Service The patient was seen on 06/20/19. NOTE SUBJECTIVE: No any acute events overnight. She was admitted to ARU after an acute right CVA causing left-sided deficits. Patient denies fever, chills, nausea, vomiting, diarrhea or dysuria OBJECTIVE: Please see vital signs below Physical exam: HEENT: Neck is supple, she does not exhibit adenopathy or thyromegaly, she does not have scleral injection or icterus, she does not have facial droop. Cardiovascular: Regular rate and rhythm with a normal S1 and S2. Respiratory: Clear to auscultation. Abdomen: Soft, nontender, nondistended. Extremities: No peripheral edema or lesions, patient wears an AFO to her left lower extremity. Neuro: Patient is right-hand dominant, she has dense plegia to her left upper extremity, she has mildly ataxic gait that corrects with quad cane. She has very good at activity endurance. ASSESSMENT/PLAN: 69-year-old female with right CVA with left-sided plegia involving both the upper and lower extremity. She is making remarkable improvement in therapy and has regained ambulation with quad cane. Patient does have underlying history of hypertension. To reduce her risk of recurrent stroke patient is on baby aspirin, antihypertensive and antilipid agent. Continue current cardioprotective therapy VS,Fishbone, I+O VS, Fishbone, I+O Vital Signs Date Time Temp Pulse Resp B/P (MAP) Pulse Ox O2 Delivery O2 Flow Rate FiO2 06/20/19 14:00 98.1 83 20 132/73 (92) 99 Room Air I&O- Last 24 Hours up to 6 AM 06/20/19 06:00 Intake Total 1160 ml Output Total 480 ml Balance 680 ml JADA DELA CRUZ DO Jun 20, 2019 16:45
[2019-06-20 20:00] VITALS: BP 139/76
[2019-06-20] MEDS: SENNA 8.6 MG TAB (SENOKOT) PO SCH (21:00)
[2019-06-21 05:50] VITALS: BP 134/84
[2019-06-21] MEDS: DOCUSATE SODIUM 100 MG CAP PO SCH ×2 (07:51→20:22)
[2019-06-21] MEDS: ASPIRIN 81 MG CHEW TABLET PO SCH (08:22)
[2019-06-21] MEDS: CLOPIDOGREL 75 MG TAB PO SCH (08:23)
[2019-06-21] MEDS: ATORVASTATIN 20 MG TAB PO SCH (08:23)
[2019-06-21] MEDS: amLODIPine 5 MG TAB PO SCH ×2 (08:23→20:22)
[2019-06-21] MEDS: POTASSIUM CHLORIDE 10 MEQ SR TABLET PO SCH (08:23)
[2019-06-21] MEDS: PANTOPRAZOLE 40MG TAB (PROTONIX) PO SCH (08:23)
[2019-06-21] MEDS: LORATADINE 10 MG TAB PO SCH (08:23)
[2019-06-21] MEDS: BACLOFEN 5MG PER 1/2 TABLET PO SCH ×2 (08:23→20:22)
[2019-06-21 14:00] VITALS: BP 154/80
[2019-06-21 20:00] VITALS: BP 151/76
[2019-06-21] MEDS: SENNA 8.6 MG TAB (SENOKOT) PO SCH (20:23)
[2019-06-22 06:00] VITALS: BP 141/65
[2019-06-22 06:52] LABS: HEMATOCRIT 37.8 % (36.0-47.0); HEMOGLOBIN 12.2 g/dl (12.0-15.5); MEAN CORPUSCULAR HEMOGLOBIN 29.8 pg (27.0-33.0); MEAN CORPUSCULAR HGB CONC 32.3 g/dl (32.0-36.5); MEAN CORPUSCULAR VOLUME 92.2 fl (80.0-96.0); PLATELET COUNT, AUTOMATED 352 10^3/uL (150-450); WHITE BLOOD COUNT 5.7 10^3/uL (4.0-10.0)
[2019-06-22 08:37] VITALS: BP 141/65
[2019-06-22] MEDS: ATORVASTATIN 20 MG TAB PO SCH (08:37)
[2019-06-22] MEDS: PANTOPRAZOLE 40MG TAB (PROTONIX) PO SCH (08:37)
[2019-06-22] MEDS: LORATADINE 10 MG TAB PO SCH (08:37)
[2019-06-22] MEDS: amLODIPine 5 MG TAB PO SCH (08:37)
[2019-06-22] MEDS: BACLOFEN 5MG PER 1/2 TABLET PO SCH (08:37)
[2019-06-22] MEDS: CLOPIDOGREL 75 MG TAB PO SCH (08:37)
[2019-06-22] MEDS: ASPIRIN 81 MG CHEW TABLET PO SCH (08:37)
[2019-06-22] MEDS: POTASSIUM CHLORIDE 10 MEQ SR TABLET PO SCH (08:37)
[2019-06-22] MEDS: DOCUSATE SODIUM 100 MG CAP PO SCH (08:41)
[2019-06-22] MEDS ORDERED: KLOR10TA76 PO (09:59)
[2019-06-22] MEDS ORDERED: ASPI81CH8 PO (09:59)
[2019-06-22] MEDS ORDERED: PANT40TA3 PO (09:59)
[2019-06-22] MEDS ORDERED: AMLO5TAB6 PO (09:59)
[2019-06-22] MEDS ORDERED: ATOR1TAB21 PO (09:59)
[2019-06-22] MEDS ORDERED: CLOP75TA2 PO (09:59)
[2019-06-22] MEDS ORDERED: BACL10TA2 PO (09:59)
--- NOTE | 2019-06-22 10:03 | IPNPDOC ---
PM&R Progress Note DATE OF SERVICE: Jun 19, 2019 Processing Engineer Progress Note Subjective: Patient seen walking in room with complex director, stating she feels less stable with the solid AFO and is not interested in customizing it. REVIEW OF SYSTEMS: The following is a completed review of systems and has been reviewed. Review of systems otherwise unremarkable. PAIN: Patient self reports no pain EYES: No recent vision changes EARS, NOSE, & THROAT: No throat pain, or dysphagia, or rhinorrhea CARDIOVASCULAR: Denies chest pain or palpitations PULMONARY: Denies shortness of breath GASTROINTESTINAL: Denies constipation/diarrhea GENITOURINARY:increased frequency and urge MUSCULOSKELETAL: left sided weakness NEUROLOGICAL:+hemiplegia with stroke HEMATOLOGICAL: denies easy bruising SKIN: left hand rash PSYCHIATRIC: Unremarkable All other review of systems found to be negative. PHYSICAL EXAMINATION: VITAL SIGNS: Please see below. GENERAL: Pleasant and cooperative. No acute distress. HEENT: PERRL. Extraocular movements intact. Clear conjunctiva CARDIOVASCULAR: Regular rate and rhythm. No murmurs, rubs, or gallops LUNGS: Clear to auscultation bilaterally. No wheezes. No rhonchi ABDOMEN: Soft, nontender, nondistended. Positive bowel sounds. Normal active bowel sounds NEUROLOGICAL: Alert and oriented times three. Cranial nerves II through XII grossly intact except left facial droop. Sensation grossly intact to light touch all 4 limbs Left elbow flexor tone 1/4, elbow extensors 1/4, wrist flexors 1/4, finger flexors 1/4 MAS +clonus LLE EXTREMITIES: 5\5 strength right upper extremities. LUE 1/5 arm abduction, elbow flexion/extension, 0/5 wrist extension, 1/5 glassworker 5\5 strength right lower extremity. 4/5 strength in left hip flexion/knee extension, 0/5 ankle DF/EHL, 2/5 ankle PF ASSESSMENT:69-year-old F with past medical history of HTN who presents status post right mast radiata infarct PLAN: 1. 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 cardiac: Htn c/u amlodipine- medicine consulted to assist in management -HLD c/u statin 4. resp: encourage incentive spirometry 5. : monitor PVRs, denies dysuria 6. DVT ppx: lovenox, ambulating well 7. GI ppx: protonix 8. Skin: left dorsal hand peeling, apply lotion BID-resolved 9. Dispo: 06-22-19 to home, pending son coming for training and pick-up Allergies Coded Allergies: SEASONAL ALLERGIES (Verified Allergy, Unknown, 05/14/19) lactose (Verified Allergy, Unknown, 05/14/19) Vital Signs Vital Signs Date Time Temp Pulse Resp B/P (MAP) Pulse Ox O2 Delivery O2 Flow Rate FiO2 06/22/19 08:37 81 141/65 06/22/19 06:00 98.7 17 98 Room Air Laboratory Data CBC/BMP Laboratory Tests 06/22/19 06:14 Labs 24H Laboratory Tests 2 06/22/19 06:14: Nucleated Red Blood Cells % (auto) 0.0 Microbiology Microbiology 06/20/19 Stool Occult Blood (MAXI) - Final, Complete Current Medications Current Medications Current Medications Medications (Trade) Dose Ordered Sig/Shanna Route PRN Reason Start Time Stop Time Status Last Admin Dose Admin Acetaminophen (Tylenol Tab) 650 mg Q4HP PRN PO MILD PAIN (PS 1-4) 06/10/19 18:15 Amlodipine Besylate (Norvasc) 5 mg BID PO 06/10/19 21:00 06/22/19 08:37 Aspirin (Aspirin Chewable) 81 mg DAILY PO 06/11/19 09:00 06/22/19 08:37 Atorvastatin Calcium (Lipitor) 20 mg DAILY PO 06/11/19 09:00 06/22/19 08:37 Baclofen (Lioresal) 5 mg BID PO 06/11/19 09:00 06/22/19 08:37 Clopidogrel Bisulfate (PLAVix) 75 mg DAILY PO 06/11/19 09:00 06/22/19 08:37 Diphenhydramine HCl (Benadryl) 25 mg Q6HP PRN PO ITCHING 06/10/19 18:15 Docusate Sodium (Colace) 100 mg BID PO 06/10/19 21:00 06/11/19 09:21 Enoxaparin Sodium (Lovenox) 40 mg DAILY SC 06/11/19 09:00 06/18/19 16:30 DC 06/18/19 09:29 Fluoxetine HCl (PROzac) 20 mg QHS PO 06/10/19 21:00 06/10/19 18:34 DC Loratadine (Claritin) 10 mg DAILY PO 06/11/19 09:00 06/22/19 08:37 Magnesium Hydroxide (Milk Of Magnesia) 30 ml DAILYPRN PRN PO CONSTIPATION 06/10/19 18:15 Pantoprazole Sodium (Protonix) 40 mg DAILY PO 06/11/19 09:00 06/22/19 08:37 Potassium Chloride (Micro-K Extencaps) 20 meq DAILY PO 06/11/19 09:00 06/22/19 08:37 Senna (Senokot) 1 tab QHS PO 06/10/19 21:00 MIKI MIDDLETON MD Jun 22, 2019 10:03
[2019-06-22 10:33] LABS: BLOOD UREA NITROGEN 11 MG/DL (7-18); CALCIUM LEVEL 9.4 MG/DL (8.8-10.2); CARBON DIOXIDE LEVEL 32 MEQ/L (21-32); CHLORIDE LEVEL 108 MEQ/L (98-107); CREATININE FOR GFR 0.62 MG/DL (0.55-1.30); GLOMERULAR FILTRATION RATE > 60.0 (>39); GLUCOSE, FASTING 93 MG/DL (70-100); POTASSIUM SERUM 3.6 MEQ/L (3.5-5.1); SODIUM LEVEL 144 MEQ/L (136-145)
--- NOTE | 2019-06-22 12:46 | PMRDS ---
DATE OF ADMISSION: 06/10/2019 DATE OF DISCHARGE: CHIEF COMPLAINT/DISCHARGE DIAGNOSIS: Stroke. HISTORY OF PRESENT ILLNESS: 69-year-old female with a past medical history of hypertension that was not treated who was visiting family in [place] when she developed left-sided paresis and difficulty speaking presenting to [facility] emergency department (ED) on 08/14/2018 where she was found to be in hypertensive emergency with systolic blood pressures (SBP) greater than 200 in the 250s. CTH was negative for intracranial hemorrhage. An MRI showed "acute right mast radiata infarction without mass effect or significant hemorrhage." She was noted to have a type 2 non-ST elevation myocardial infarction (NSTEMI) as well with transthoracic echocardiogram (TTE) showing "normal global left ventricular systolic function with mild concentric left ventricular hypertrophy. There are some features of grade 1 left ventricular diastolic dysfunction manifested by abnormal relaxation" and bubble study was negative. Carotid ultrasound did not show significant stenosis of bilateral ICA and CTA showed "no intracranial high-grade stenosis or vessel occlusion. 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 Neurology recommended aspirin and Plavix in addition to statin therapy and performed an electroencephalogram (EEG) which was negative for epileptic activity. She was evaluated by therapy and had deficits in mobility, activities of daily living (ADL) well below her prior level of function and deemed medically appropriate for discharge to acute rehabilitation unit (ARU) on 06/10/2019. PAST MEDICAL HISTORY: As per HPI. HOSPITAL COURSE: The patient was admitted and enrolled in a comprehensive physical therapy (PT), occupational therapy (OT) program. She received 24 hour nursing supervision and weekly team meetings were held to discuss her progress. The patient presented with significant left upper extremity tone and coldness and was started on baclofen with significant improvement in her overall tone. The patient also received Astym and daily stretching which was also beneficial. On 06/17/2019, the patient fell and hit the back of her head during therapy, however denied any pain or weakness and showed no neurological decline over the course of her hospital stay. The patient was evaluated for a solid ankle foot orthesis (AFO), however declined this orthotic and preferred the more flexible thoracolumbosacral orthosis (TLSO) that was being trialed on therapy. The patient made significant and good gains in therapy, was ambulating with a wide-based quad cane and was deemed medically and functionally stable to return home. DISCHARGE MEDICATIONS: As per instructions. FUNCTIONAL HISTORY: Upon discharge, the patient was modified independent for all functional transfers, able to ambulate 364 feet and able to put on her AFO and negotiate stairs at a modified independent level. In occupational therapy, she was modified independent for lower body dressing and functional transfers. Thank you for this referral.
== END 2019-06-22 12:45 | disposition home or self-care (01) | DRG 56 ==
LOC: M MS4PR 14:50 → M PM&R 15:59
PROVIDERS: ADMIT Physical Medicine & Rehabilitation; ATTEND Physical Medicine & Rehabilitation
DX: I69.354 Hemiplegia and hemiparesis following cerebral infarction affecting left non-dominant side (principal); I21.A1 Myocardial infarction type 2; I10 Essential (primary) hypertension; E78.5 Hyperlipidemia, unspecified; J30.2 Other seasonal allergic rhinitis; E73.9 Lactose intolerance, unspecified; R21 Rash and other nonspecific skin eruption; Z79.899 Other long term (current) drug therapy; Z79.82 Long term (current) use of aspirin